=== PATIENT | female | born 1960 | race Caucasian/White ===

== ENCOUNTER 2021-07-19 11:05 | Emergency (ER) | payer OTHER, SELFPAY ==
--- NOTE | ~2021-07-19 | XR_ITS ---
EXAMINATION: XR ankle LT min 3V DATE: 07/19/2021 11:37 INDICATION: Left ankle injury and pain. TECHNIQUE: 4 views of left ankle were obtained. COMPARISON: None. FINDINGS: There is a transverse fracture of distal fibula with medial aspect of the fracture line at the level of the tibial plafond. The distal fracture fragment demonstrates 1 mm posterolateral displa cement. There is a nondisplaced avulsion fracture of the tip of medial malleolus. Joint spaces are no rmal. There is ankle soft tissue swelling. IMPRESSION: 1. Transverse fracture of lateral malleolus. 2. Avulsion fracture of distal tip of medial malleolus. Reviewed, dictated and finalized at location A.
--- NOTE | ~2021-07-19 | XR_ITS ---
EXAMINATION: XR foot LT min 3V DATE: 07/19/2021 11:38 INDICATION: Left foot injury and pain. TECHNIQUE: 4 views of left foot were obtained. COMPARISON: None. FINDINGS: There is moderate hallux valgus. There is a transverse fracture of lateral malleolus. There is a nondisplaced avulsion fracture of medial malleolus. There is mild osteoarthritis of first metat arsophalangeal joint. IMPRESSION: 1. Transverse fracture of lateral malleolus. 2. Nondisplaced avulsion fracture of medial malleolus. 3. Moderate hallux valgus. 4. Mild osteoarthritis of first metatarsophalangeal joint. Reviewed, dictated and finalized at location A.
[2021-07-19 11:05] VITALS: BP 131/78; PULSE 104; RESP 14; TEMP 36.7; O2SAT 98
[2021-07-19] MEDS: HYDROcodone/acetaminophen (*CRX) 5-325 MG TABLET 1 TAB PO (11:29)
[2021-07-19 12:57] VITALS: BP 124/68; PULSE 82; RESP 16; O2SAT 97
--- NOTE | 2021-07-19 13:53 | ED.LOWEXIN ---
HPI - Extremity Injury (Lower) General Chief Complaint: Extremity Injury, Lower Stated Complaint: L foot pain Time Seen by Provider: 07/19/21 11:08 History of Present Illness HPI Narrative: Patient is a 61-year-old female who presents ER with left ankle pain. Reports 2 days ago she tripped over a extension cord and twisted her ankle. She has not been able to bear weight. Pain is persisting. She has bruising at the base of her foot hurts worse over the lateral malleolus. She had some mild tingling. She did not strike her head or lose consciousness. No fevers or chills or. No additional concerns or complaints. Related Data Allergies Allergy/AdvReac Type Severity Reaction Status Date / Time diazepam Allergy Unknown Other Verified 07/19/21 11:10 imipramine Allergy Unknown Other Verified 07/19/21 11:10 risperidone Allergy Unknown Other Verified 07/19/21 11:10 WOOL AdvReac Unknown Other Uncoded 07/19/21 11:10 Review of Systems Gastrointestinal: Gastrointestinal: Denies nausea and Denies vomiting Musculoskeletal: Musculoskeletal: Reports arthralgias and Reports joint swelling Integumentary/Breasts: Skin/Breast: Denies rash Comments: Foot bruising Neurologic: Denies syncope, Denies focal weakness and Reports numbness Exam Narrative: GENERAL: Well-appearing, well-nourished, and in no acute distress. HEAD: Normocephalic, atraumatic. CHEST: Clear to auscultation. No respiratory distress. HEART: Regular rate and rhythm. Normal peripheral pulses. EXTREMITIES: Left ankle with tenderness over the lateral malleolus with bruising extending both proximally and distally. Swelling noted. Patient also has tenderness at the base of the fifth metatarsal and over the medial malleolus. Limited range of motion due to pain. No tenderness range of motion deficit at the ankle. Neurovascular intact in the foot. Sharp touch tested and felt. SKIN: Warm, dry, no rash. Bruising as noted above. NEURO: Alert and oriented x3. PSYCH: Normal mood and affect. Course Course Emergency Course: Patient placed in a stirrup OCL. Crutch training provided. Needs to follow-up with orthopedic surgery for further treatment evaluation. Vital Signs Vital signs: Vital Signs Temperature 98.0 F 07/19/21 11:05 Pulse Rate 104 H 07/19/21 11:05 Respiratory Rate 14 07/19/21 11:05 Blood Pressure 131/78 07/19/21 11:05 Pulse Oximetry 98 07/19/21 11:05 Temperature 98.0 F 07/19/21 11:05 Pulse Rate 80 07/19/21 13:55 Respiratory Rate 19 07/19/21 13:55 Blood Pressure 120/85 07/19/21 13:55 Pulse Oximetry 97 07/19/21 13:55 Procedures Orthopedic Splinting/Casting Injury #1: Splinting/Casting Date: 07/19/21 Splinting/Casting Time: 12:55 Side: left Lower Extremity Injury Location: ankle Lower Extremity Immobilizer: stirrup splint Splint: customized in ED OCL: stirrup Pre-Procedure Neuro Vascular Exam: normal Post-Procedure Neuro Vascular Exam: normal Other Orthopedic Equipment: crutches MDM - Extremity Injury (Lower) Imaging Data Radiologist's impression: ITS Impressions Ankle X-Ray 07/19/21 11:38 IMPRESSION: 1. Transverse fracture of lateral malleolus. 2. Avulsion fracture of distal tip of medial malleolus. Foot X-Ray 07/19/21 11:40 IMPRESSION: 1. Transverse fracture of lateral malleolus. 2. Nondisplaced avulsion fracture of medial malleolus. 3. Moderate hallux valgus. 4. Mild osteoarthritis of first metatarsophalangeal joint. Discharge Plan Discharge Clinical Impression: Fracture of lateral malleolus, Avulsion fracture of medial malleolus Patient Disposition: Home, Self-Care Condition: Stable Instructions: Ankle Fracture (ED), Crutch Instructions (ED) Additional Instructions: Do not bear weight on your ankle as it is fractured. Contact orthopedic surgeon listed to schedule follow-up appointment. Return to the ER if
[2021-07-19 13:55] VITALS: BP 120/85; PULSE 80; RESP 19; O2SAT 97
== END 2021-07-19 13:55 | disposition home or self-care (01) ==
PROVIDERS: Emergency Provider Emergency Medicine; PCP Physician Assistant
DX: S82.55XA Nondisplaced fracture of medial malleolus of left tibia, initial encounter for closed fracture (principal); S82.62XA Displaced fracture of lateral malleolus of left fibula, initial encounter for closed fracture; W01.0XXA Fall on same level from slipping, tripping and stumbling without subsequent striking against object, initial encounter
CPT/HCPCS: 29515; 73610; 73630; 99284; A9270

== ENCOUNTER 2023-05-27 17:16 | Emergency (ER) | payer OTHER, SELFPAY ==
[2023-05-27] VITALS (10 sets, daily range): BP systolic 135–181; BP diastolic 85–109; PULSE 67–108; RESP 14–24; TEMP 36.4–36.6; O2SAT 95–98
--- NOTE | ~2023-05-27 | XR_ITS ---
EXAMINATION: XR chest 1V portable DATE: 05/27/2023 18:15 INDICATION: Dyspnea. Dizziness. TECHNIQUE: A single frontal view of the chest was obtained. COMPARISON: None. FINDINGS: There is no pneumonia, pleural effusion, or pneumothorax. The heart size is normal. There a re old healed left rib fractures. IMPRESSION: 1. No acute cardiopulmonary disease. Reviewed, dictated and finalized at location E.
--- NOTE | 2023-05-27 17:38 | ECG_ITS ---
SEE SCANNED COPY FOR CONFIRMED REPORT MTDD
--- NOTE | 2023-05-27 17:40 | ED.DIZZY ---
HPI - Dizziness General Chief Complaint: Dizziness Stated Complaint: dizzy Time Seen by Provider: 05/27/23 17:26 History of Present Illness HPI Narrative: 63-year-old female with a history of anxiety and schizophrenia presents to the ED from [facility] with her caregiver at bedside for complaints of dizziness for approximately 1 week. Caregiver assist with history. States patient is complaining of dizziness mostly when she lays down for 1 week. Patient describes a dizziness like she is ?rolling down a hill?. She is also endorsing some shortness of breath. She denies coughing, however is coughing on exam. Denies fever, congestion, chest pain, lower extremity edema, history of VT, recent surgeries or hospitalizations, abdominal pain, nausea vomiting, diarrhea, vision changes, focal numbness or weakness, dysuria or hematuria. Patient states she smokes approximately 10 cigarettes per day, she has been smoking for 45 years. Denies formal diagnosis of COPD. Related Data Home Medications Medication Instructions Recorded Confirmed acetaminophen 500 mg tablet 1,000 mg PO Q6H PRN fever or pain 07/26/21 10/03/21 albuterol sulfate 90 mcg/actuation 2 puff inhalation TID PRN 07/26/21 10/03/21 aerosol inhaler shortness of breath or wheezing baclofen 10 mg tablet 10 mg PO TID PRN 07/26/21 10/03/21 budesonide-formoterol HFA 160 2 puff inhalation Q12H 07/26/21 10/03/21 mcg-4.5 mcg/actuation aerosol inhaler (Symbicort) dextroamphetamine sulfate 10 mg 10 mg PO DAILY 07/26/21 10/03/21 tablet docusate sodium 100 mg capsule 100 mg PO BID 07/26/21 10/03/21 ferrous sulfate 325 mg (65 mg 325 mg PO TID 07/26/21 10/03/21 iron) tablet,delayed release fluticasone propionate 50 1 spray intranasal BID 07/26/21 10/03/21 mcg/actuation nasal spray,suspension (Allergy Relief (fluticasone)) ibuprofen 800 mg tablet 800 mg PO TID PRN pain 07/26/21 10/03/21 loratadine 10 mg tablet 10 mg PO DAILY 07/26/21 10/03/21 multivitamin 1 tablet PO DAILY 07/26/21 10/03/21 nicotine (polacrilex) 4 mg buccal 4 mg buccal Q3H PRN 07/26/21 10/03/21 lozenge (Nicorette) omeprazole 40 mg capsule,delayed 40 mg PO DAILY 07/26/21 10/03/21 release paliperidone palmitate 234 mg/1.5 234 mg IM MONTHLY 07/26/21 10/03/21 mL intramuscular syringe (Invega Sustenna) prazosin 1 mg capsule 1 mg PO TID 07/26/21 10/03/21 simvastatin 40 mg tablet 40 mg PO DAILY 07/26/21 10/03/21 sumatriptan succinate 100 mg tablet 100 mg PO ONCE PRN migraine 07/26/21 10/03/21 headache trihexyphenidyl 2 mg tablet 2 mg PO QHS 07/26/21 10/03/21 venlafaxine 150 mg 150 mg PO DAILY 07/26/21 10/03/21 capsule,extended release 24 hr venlafaxine 75 mg tablet 75 mg PO QAM 07/26/21 10/03/21 ziprasidone HCl 80 mg capsule 80 mg PO BID 07/26/21 10/03/21 Allergies Allergy/AdvReac Type Severity Reaction Status Date / Time diazepam Allergy Unknown Throat Verified 05/27/23 17:25 Swelling imipramine Allergy Unknown Seizure Verified 05/27/23 17:25 risperidone Allergy Unknown Throat Verified 05/27/23 17:25 Swelling WOOL AdvReac Unknown Other Uncoded 05/27/23 17:25 Review of Systems Review of Systems: CONSTITUTIONAL: Denies fever, chills, or sweats. EYES: Denies visual changes, redness, or discharge. ENT: Denies rhinorrhea, congestion, sore throat, or otalgia. CARDIOVASCULAR: Denies chest pain, palpitations, or edema. RESPIRATORY: See HPI GASTROINTESTINAL: Denies abdominal pain, nausea, vomiting, or diarrhea. GENITOURINARY: Denies dysuria or hematuria. SKIN: Denies rash or itching. MUSCULOSKELETAL: Denies back pain, joint pain, or myalgia. NEUROLOGIC: Denies headache, numbness, or weakness. PSYCHIATRIC: See HPI [facility] Past Medical History Medical History Anxiety Asthma Depression Osteoarthritis UTI (urinary tract infection), bacterial Wears glasses Weight gain Surgical History Surgical History (Re
[2023-05-27 17:57] LABS: Basophils Absolute Auto 0.1 K/mm3 (0.0-0.1); Basophils Percent Auto 0.8 % (0.2-1.2); Eosinophils Absolute Auto 0.1 K/mm3 (0-0.3); Eosinophils Percent Auto 1.2 % (0-4.4); Hematocrit 40.6 % (37.0-47.0); Hemoglobin 13.9 g/dL (12.0-15.0); Immature Granulocyte Absolute 0.03 K/mm3 (0.00-0.031); Immature Granulocyte Percent A 0.3 % (0-0.5); Lymphocytes Absolute Auto 3.52 K/mm3 (0.9-3.2); Lymphocytes Percent Auto 37.3 % (18.3-44.2); Mean Corpuscular HGB Conc 34.2 g/dl (32-36); Mean Corpuscular Hemoglobin 32.7 pg (26-34); Mean Corpuscular Volume 95.5 fl (80-100); Mean Platelet Volume 9.9 fl (7.4-10.4); Monocytes Percent Auto 10.7 % (2.6-8.5); Neutrophils Absolute Auto 4.7 K/mm3 (1.3-6.7); Neutrophils Percent Auto 49.7 % (45.5-73.1); Platelet Count Result 231 k/mm3 (150-375); Red Blood Count 4.25 M/mm3 (4.2-5.4); Red Cell Distribution Width 14.1 % (11.5-14.5); White Blood Count 9.4 K/mm3 (4.5-10.0)
[2023-05-27] MEDS: IPRATROPIUM 0.5 MG/ALBUTEROL SULFATE 2.5 MG AMPUL.NEB 3 ML INHALATION (18:03)
[2023-05-27 18:09] LABS: Alanine Aminotransferase 14 U/L (6-35); Albumin Level 4.1 g/dL (3.5-5.1); Alkaline Phosphatase 59 U/L (38-126); Anion Gap 7 mmol/L (4-12); Aspartate Amino Transferase 21 U/L (14-36); Bilirubin,Total 0.6 mg/dL (0.2-1.3); Blood Urea Nitrogen 5 mg/dL (7-17); Calcium 10.3 mg/dL (8.4-10.2); Carbon Dioxide 27 mmol/L (22-30); Chloride 106 mmol/L (98-107); Estimated CRCL calculation 60 ml/min; Estimated Glomerular Filt Rate > 60; Glucose 91 mg/dL (65-110); Potassium 3.4 mmol/L (3.4-5.0); Sodium 140 mmol/L (137-145)
[2023-05-27 18:16] LABS: Partial Thromboplastin Time 27.6 Seconds (22.3-36.8)
[2023-05-27 18:17] LABS: INR 0.9; Prothrombin Time 12.7 Seconds (11.1-14.7)
[2023-05-27 18:20] LABS: NT Pro B Type Natriuretic Pept 153 pg/mL (19.9-100); Troponin I < 0.012 ng/mL (0.000-0.034)
[2023-05-27] MEDS: methylPREDNISolone SOD SUCC 125 MG VIAL IV PUSH (18:23)
[2023-05-27] MEDS: SODIUM CHLORIDE 0.9% IV 1,000 ML 999 ML IV CONT ×2 (18:23→19:19)
[2023-05-27] MEDS: MECLIZINE HCL 25 MG TABLET PO (18:23)
[2023-05-27 18:26] LABS: D Dimer 0.69 ug/mL (<0.48)
[2023-05-27 18:33] LABS: Influenza A QL RT-PCR Negative (Negative); Influenza B QL RT-PCR Negative (Negative); RSV RNA, RT-PCR Negative (Negative); SARS-CoV-2 RNA PCR Negative (Negative)
[2023-05-27 19:21] LABS: Appearance Urine Clear (Clear); Bacteria Urine None Seen /hpf; Bilirubin Urine Negative (Negative); Blood Urine Negative (Negative); Color Urine Yellow (Yellow); Glucose Urine UA Negative (Negative); Ketones Urine Trace mg/dL (Negative); Leukocyte Esterase Ur 1+ LEU/UL (Negative); Need Manual Microscopic Reviewed; Nitrate Urine Negative (Negative); Non Pathogenic Casts 0-2; Protein Urine Negative (Negative); RBC Urine 0-2 /hpf (0-2); Specific Grav Ur 1.007 (1.001-1.035); Squamous Epithelial Cell Urine Occasional /hpf (Few); Urobilinogen Urine 0.2 mg/dL (<2.0); WBC Urine 0-5 /hpf (0-3); pH Urine 6.5 (5.0-9.0)
[2023-05-27 19:23] LABS: Add Urine Microscopic? YES
--- NOTE | 2023-05-27 19:48 | PC.NURSE ---
Pt states that she feels better and is ready to eat. Aylin notified and requested a road test. Pt ambulatory to the restroom with steady gait. Aylin updated.
[2023-05-27] MEDS: AMOXICILLIN/CLAVULANATE K 875-125 MG TAB 1 TABLET PO (20:50)
== END 2023-05-27 21:00 | disposition home or self-care (01) ==
PROVIDERS: Emergency Provider Physician Assistant; PCP Emergency Medicine
DX: J40 Bronchitis, not specified as acute or chronic (principal); I95.1 Orthostatic hypotension; Z20.822 Contact with and (suspected) exposure to COVID-19; F17.210 Nicotine dependence, cigarettes, uncomplicated; F41.9 Anxiety disorder, unspecified; F32.A Depression, unspecified; M19.90 Unspecified osteoarthritis, unspecified site; Z87.440 Personal history of urinary (tract) infections
CPT/HCPCS: 36415; 71045; 80053; 81001; 83735; 83880; 84484; 85025; 85380; 85610; 85730; 87637; 93005; 94640; 96361; 96374; 99284; A9270; J2919; J7030

== ENCOUNTER 2023-06-05 20:22 | Emergency (ER) | payer OTHER, SELFPAY ==
[2023-06-05 20:26] VITALS: BP 140/76; PULSE 79; RESP 20; TEMP 36.8; O2SAT 97
--- NOTE | 2023-06-05 21:24 | PC.NURSE ---
Pt's caregiver approached the motel front desk clerk stating they were leaving so pt could go home and go to bed.
== END 2023-06-05 21:34 | disposition left against medical advice (07) ==
LOC: ANHED 21:27
PROVIDERS: PCP Emergency Medicine
DX: G47.00 Insomnia, unspecified (principal)
CPT/HCPCS: 99199

== ENCOUNTER 2023-07-14 15:53 | Emergency (ER) | payer OTHER, SELFPAY ==
--- NOTE | ~2023-07-14 | XR_ITS ---
EXAMINATION: XR chest 2V DATE: 07/14/2023 16:18 INDICATION: Shortness of breath. TECHNIQUE: Frontal and lateral views of the chest were obtained. COMPARISON: Chest single view 05/27/2023 FINDINGS: There is no pneumonia, pleural effusion, or pneumothorax. The heart size is normal. There a re old healed left rib fractures. IMPRESSION: 1. No acute cardiopulmonary disease. Reviewed, dictated and finalized at location A.
[2023-07-14 15:52] VITALS: BP 136/86; PULSE 108; RESP 20; O2SAT 95
[2023-07-14 16:02] VITALS: O2SAT 96
[2023-07-14 16:12] LABS: Basophils Absolute Auto 0.1 K/mm3 (0.0-0.1); Basophils Percent Auto 0.7 % (0.2-1.2); Eosinophils Absolute Auto 0.1 K/mm3 (0-0.3); Eosinophils Percent Auto 1.3 % (0-4.4); Hematocrit 39.2 % (37.0-47.0); Hemoglobin 13.5 g/dL (12.0-15.0); Immature Granulocyte Absolute 0.04 K/mm3 (0.00-0.031); Immature Granulocyte Percent A 0.4 % (0-0.5); Lymphocytes Absolute Auto 2.42 K/mm3 (0.9-3.2); Lymphocytes Percent Auto 22.5 % (18.3-44.2); Mean Corpuscular HGB Conc 34.4 g/dl (32-36); Mean Corpuscular Hemoglobin 32.8 pg (26-34); Mean Corpuscular Volume 95.4 fl (80-100); Mean Platelet Volume 9.6 fl (7.4-10.4); Monocytes Absolute Auto 1.1 K/mm3 (0.1-0.6); Neutrophils Percent Auto 65.1 % (45.5-73.1); Platelet Count Result 315 k/mm3 (150-375); Red Blood Count 4.11 M/mm3 (4.2-5.4); Red Cell Distribution Width 14.6 % (11.5-14.5); White Blood Count 10.8 K/mm3 (4.5-10.0)
[2023-07-14 16:23] LABS: Alanine Aminotransferase 13 U/L (6-35); Albumin Level 4.1 g/dL (3.5-5.1); Alkaline Phosphatase 70 U/L (38-126); Anion Gap 8 mmol/L (4-12); Aspartate Amino Transferase 23 U/L (14-36); Bilirubin,Total 0.6 mg/dL (0.2-1.3); Blood Urea Nitrogen 5 mg/dL (7-17); Calcium 9.9 mg/dL (8.4-10.2); Carbon Dioxide 27 mmol/L (22-30); Chloride 102 mmol/L (98-107); Estimated CRCL calculation 69 ml/min; Estimated Glomerular Filt Rate > 60; Glucose 98 mg/dL (65-110); Sodium 137 mmol/L (137-145)
--- NOTE | 2023-07-14 18:38 | ED.SOB ---
HPI - SOB/Dyspnea General Chief Complaint: Shortness of Breath/Dyspnea Stated Complaint: dyspnea Time Seen by Provider: 07/14/23 17:55 History of Present Illness HPI Narrative: patient is a 63-year-old female who presents ER with shortness of breath. She has history of asthma. She does not have a mask for her nebulizer machine at home. She received a neb by EMS as well as receiving steroids. She reports this has made her feel much better. No fevers or chills or sweats. No chest pain or chest pressure. Related Data Home Medications Medication Instructions Recorded Confirmed acetaminophen 500 mg tablet 1,000 mg PO Q6H PRN fever or pain 07/26/21 10/03/21 albuterol sulfate 90 mcg/actuation 2 puff inhalation TID PRN 07/26/21 10/03/21 aerosol inhaler shortness of breath or wheezing baclofen 10 mg tablet 10 mg PO TID PRN 07/26/21 10/03/21 budesonide-formoterol HFA 160 2 puff inhalation Q12H 07/26/21 10/03/21 mcg-4.5 mcg/actuation aerosol inhaler (Symbicort) dextroamphetamine sulfate 10 mg 10 mg PO DAILY 07/26/21 10/03/21 tablet docusate sodium 100 mg capsule 100 mg PO BID 07/26/21 10/03/21 ferrous sulfate 325 mg (65 mg 325 mg PO TID 07/26/21 10/03/21 iron) tablet,delayed release fluticasone propionate 50 1 spray intranasal BID 07/26/21 10/03/21 mcg/actuation nasal spray,suspension (Allergy Relief (fluticasone)) ibuprofen 800 mg tablet 800 mg PO TID PRN pain 07/26/21 10/03/21 loratadine 10 mg tablet 10 mg PO DAILY 07/26/21 10/03/21 multivitamin 1 tablet PO DAILY 07/26/21 10/03/21 nicotine (polacrilex) 4 mg buccal 4 mg buccal Q3H PRN 07/26/21 10/03/21 lozenge (Nicorette) omeprazole 40 mg capsule,delayed 40 mg PO DAILY 07/26/21 10/03/21 release paliperidone palmitate 234 mg/1.5 234 mg IM MONTHLY 06/16/22 08/24/22 mL intramuscular syringe (Invega Sustenna) prazosin 1 mg capsule 1 mg PO TID 07/26/21 10/03/21 simvastatin 40 mg tablet 40 mg PO DAILY 07/26/21 10/03/21 sumatriptan succinate 100 mg tablet 100 mg PO ONCE PRN migraine 07/26/21 10/03/21 headache trihexyphenidyl 2 mg tablet 2 mg PO QHS 07/26/21 10/03/21 venlafaxine 150 mg 150 mg PO DAILY 07/26/21 10/03/21 capsule,extended release 24 hr venlafaxine 75 mg tablet 75 mg PO QAM 07/26/21 10/03/21 ziprasidone HCl 80 mg capsule 80 mg PO BID 07/26/21 10/03/21 Allergies Allergy/AdvReac Type Severity Reaction Status Date / Time diazepam Allergy Unknown Throat Verified 06/05/23 20:23 Swelling imipramine Allergy Unknown Seizure Verified 06/05/23 20:23 risperidone Allergy Unknown Throat Verified 06/05/23 20:23 Swelling WOOL AdvReac Unknown Other Uncoded 06/05/23 20:23 Review of Systems Review of Systems: All systems reviewed & are unremarkable except as noted in HPI and below Constitutional: Constitutional: Reports no additional constitutional complaints ENT: Reports system reviewed and no additional complaints, except as documented Cardiovascular: Cardiovascular: Reports no additional cardiovascular complaints Respiratory: Respiratory: Reports cough, Reports dyspnea and Reports wheezing Gastrointestinal: Gastrointestinal: Reports no additional gastrointestinal complaints Genitourinary: Genitourinary: Reports no additional female genitourinary complaints PMFSH Past Medical History Medical History Anxiety Asthma Depression Osteoarthritis UTI (urinary tract infection), bacterial Wears glasses Weight gain Surgical History Surgical History History of ankle surgery right ankle Dr. Lopez Family History Family History Other Arthritis Asthma Depression Social History Social History Smoking packs per day: 1 Smoking cigarettes per day: 20.0 Years smoked: 40 Smoking pack-years: 40.0
[2023-07-14 18:52] VITALS: PULSE 103; RESP 24
[2023-07-14] MEDS: IPRATROPIUM 0.5 MG/ALBUTEROL SULFATE 2.5 MG AMPUL.NEB 3 ML INHALATION (18:52)
[2023-07-14 19:28] VITALS: BP 144/93; PULSE 68; RESP 16; O2SAT 98
== END 2023-07-14 19:37 | disposition home or self-care (01) ==
PROVIDERS: Emergency Provider Emergency Medicine; PCP Emergency Medicine
DX: J45.909 Unspecified asthma, uncomplicated (principal); M19.90 Unspecified osteoarthritis, unspecified site; F41.9 Anxiety disorder, unspecified; F32.A Depression, unspecified; F17.210 Nicotine dependence, cigarettes, uncomplicated; Z87.440 Personal history of urinary (tract) infections; Z79.899 Other long term (current) drug therapy; R00.0 Tachycardia, unspecified; I51.7 Cardiomegaly
CPT/HCPCS: 36415; 71046; 80053; 85025; 93005; 94640; 99284

== ENCOUNTER 2023-08-15 18:36 | Emergency (ER) | payer OTHER, SELFPAY ==
--- NOTE | ~2023-08-15 | XR_ITS ---
XR chest 1V portable Ordering provider: Malu Yan PA-C History: 63 years Female with . dysphagia . Comparison: July 14, 2023 FINDINGS: MEDIASTINUM: The cardiac silhouette is not enlarged. LUNGS: No infiltrates, effusions or pneumothorax. Atelectatic changes in the right lung base. OTHER: No free air under the diaphragm. IMPRESSION: No acute cardiopulmonary pathology. Reviewed, dictated and finalized at location A.
[2023-08-15 18:39] VITALS: BP 144/90; PULSE 74; RESP 16; TEMP 36.7; O2SAT 96
[2023-08-15] MEDS: SODIUM CHLORIDE 0.9% IV 1,000 ML 999 ML IV CONT (19:28)
[2023-08-15 19:39] LABS: Basophils Absolute Auto 0.1 K/mm3 (0.0-0.1); Basophils Percent Auto 0.8 % (0.2-1.2); Eosinophils Absolute Auto 0.1 K/mm3 (0-0.3); Eosinophils Percent Auto 1.3 % (0-4.4); Hematocrit 39.7 % (37.0-47.0); Hemoglobin 13.7 g/dL (12.0-15.0); Immature Granulocyte Absolute 0.03 K/mm3 (0.00-0.031); Immature Granulocyte Percent A 0.3 % (0-0.5); Lymphocytes Absolute Auto 2.47 K/mm3 (0.9-3.2); Lymphocytes Percent Auto 24.3 % (18.3-44.2); Mean Corpuscular HGB Conc 34.5 g/dl (32-36); Mean Corpuscular Hemoglobin 33.3 pg (26-34); Mean Corpuscular Volume 96.4 fl (80-100); Mean Platelet Volume 9.6 fl (7.4-10.4); Monocytes Absolute Auto 1.2 K/mm3 (0.1-0.6); Monocytes Percent Auto 11.3 % (2.6-8.5); Neutrophils Absolute Auto 6.3 K/mm3 (1.3-6.7); Platelet Count Result 318 k/mm3 (150-375); Red Blood Count 4.12 M/mm3 (4.2-5.4); Red Cell Distribution Width 14.7 % (11.5-14.5); White Blood Count 10.2 K/mm3 (4.5-10.0)
[2023-08-15 19:50] LABS: Alanine Aminotransferase 13 U/L (6-35); Albumin Level 4.1 g/dL (3.5-5.1); Alkaline Phosphatase 68 U/L (38-126); Anion Gap 6 mmol/L (4-12); Aspartate Amino Transferase 20 U/L (14-36); Bilirubin,Total 0.6 mg/dL (0.2-1.3); Blood Urea Nitrogen 6 mg/dL (7-17); Calcium 10.6 mg/dL (8.4-10.2); Carbon Dioxide 31 mmol/L (22-30); Chloride 102 mmol/L (98-107); Estimated Glomerular Filt Rate > 60; Glucose 105 mg/dL (65-110); Potassium 2.9 mmol/L (3.4-5.0); Sodium 139 mmol/L (137-145)
[2023-08-15 19:51] LABS: Lactic Acid Reflex 0.9 mmol/L (0.7-2.0)
--- NOTE | 2023-08-15 20:18 | ED.GENADULT ---
HPI - General Adult General Chief complaint: Unspecified Stated complaint: difficulty swallowing Time Seen by Provider: 08/15/23 20:07 History of Present Illness HPI narrative: 63-year-old female with history of anxiety, asthma, depression presents to the emergency department with her bite block maker at bedside for difficulty swallowing for 1 month. Patient states she has been having difficulty swallowing food and fluids. states it is not painful to swallow but rather difficult to swallow. The bite block maker from the patient's assisted living facility at bedside states that the patient is complaining of difficulty swallowing for a few weeks. States the patient has been unable to take her medications unless they cut her pills into small sizes, the patient is able to swallow her meds however it does appeared to be difficult. The patient denies any chest pain or foreign body sensation, abdominal pain, nausea or vomiting, diarrhea, sore throat, fever. She Also states she is urinating more frequently. Denies dysuria or hematuria. Related Data Home Medications Medication Instructions Recorded Confirmed acetaminophen 500 mg tablet 1,000 mg PO Q6H PRN fever or pain 07/26/21 10/03/21 albuterol sulfate 90 mcg/actuation 2 puff inhalation TID PRN 07/26/21 10/03/21 aerosol inhaler shortness of breath or wheezing baclofen 10 mg tablet 10 mg PO TID PRN 07/26/21 10/03/21 budesonide-formoterol HFA 160 2 puff inhalation Q12H 07/26/21 10/03/21 mcg-4.5 mcg/actuation aerosol inhaler (Symbicort) dextroamphetamine sulfate 10 mg 10 mg PO DAILY 07/26/21 10/03/21 tablet docusate sodium 100 mg capsule 100 mg PO BID 07/26/21 10/03/21 ferrous sulfate 325 mg (65 mg 325 mg PO TID 07/26/21 10/03/21 iron) tablet,delayed release fluticasone propionate 50 1 spray intranasal BID 07/26/21 10/03/21 mcg/actuation nasal spray,suspension (Allergy Relief (fluticasone)) ibuprofen 800 mg tablet 800 mg PO TID PRN pain 07/26/21 10/03/21 loratadine 10 mg tablet 10 mg PO DAILY 07/26/21 10/03/21 multivitamin 1 tablet PO DAILY 07/26/21 10/03/21 nicotine (polacrilex) 4 mg buccal 4 mg buccal Q3H PRN 07/26/21 10/03/21 lozenge (Nicorette) omeprazole 40 mg capsule,delayed 40 mg PO DAILY 07/26/21 10/03/21 release paliperidone palmitate 234 mg/1.5 234 mg IM MONTHLY 07/26/21 10/03/21 mL intramuscular syringe (Invega Sustenna) prazosin 1 mg capsule 1 mg PO TID 07/26/21 10/03/21 simvastatin 40 mg tablet 40 mg PO DAILY 07/26/21 10/03/21 sumatriptan succinate 100 mg tablet 100 mg PO ONCE PRN migraine 07/26/21 10/03/21 headache trihexyphenidyl 2 mg tablet 2 mg PO QHS 07/26/21 10/03/21 venlafaxine 150 mg 150 mg PO DAILY 07/26/21 10/03/21 capsule,extended release 24 hr venlafaxine 75 mg tablet 75 mg PO QAM 07/26/21 10/03/21 ziprasidone HCl 80 mg capsule 80 mg PO BID 07/26/21 10/03/21 Allergies Allergy/AdvReac Type Severity Reaction Status Date / Time diazepam Allergy Unknown Throat Verified 08/15/23 19:47 Swelling imipramine Allergy Unknown Seizure Verified 08/15/23 19:47 risperidone Allergy Unknown Throat Verified 08/15/23 19:47 Swelling WOOL AdvReac Unknown Other Uncoded 08/15/23 19:47 Review of Systems Review of Systems: CONSTITUTIONAL: Denies fever, chills, or sweats. EYES: Denies visual changes, redness, or discharge. ENT: Denies rhinorrhea, congestion, sore throat, or otalgia. CARDIOVASCULAR: Denies chest pain, palpitations, or edema. RESPIRATORY: Denies cough or dyspnea. GASTROINTESTINAL: Denies abdominal pain, nausea, vomiting, or diarrhea. GENITOURINARY: See HPI SKIN: Denies rash or itching. MUSCULOSKELETAL: Denies back pain, joint pain, or myalgia. NEUROLOGIC: see HPI PSYCHIATRIC: Denies anxiety or depression. [facility] Past Medical History Medical History Anxiety Asthma Depression Osteoarthritis UTI (urinary tract infection), bacterial Wears glasses Weight gain
[2023-08-15 20:32] LABS: Magnesium 1.9 mg/dL (1.6-2.3)
[2023-08-15] MEDS: POTASSIUM CHLORIDE 20 MEQ PACKET (FOR LIQUID) 40 MEQ PO (21:02)
[2023-08-15] MEDS: KCL 20 MEQ/SW 100 ML 100 ML 50 MEQ IVPB (21:02)
[2023-08-15 21:23] VITALS: BP 164/114; PULSE 101; RESP 18; O2SAT 97
[2023-08-15 22:01] VITALS: BP 148/122; PULSE 84; RESP 18; O2SAT 98
--- NOTE | 2023-08-15 22:09 | ECG_ITS ---
Test Date: 2023-08-15 22:21:51 Measurements Intervals [place] Rate: 80 P: 64 ME: 139 QRS: 57 QRSD: 79 T: 64 QT: 377 QTc: 435 Interpretive Statements SINUS RHYTHM POSSIBLE LEFT ATRIAL ENLARGEMENT BASELINE ARTIFACT- I, II, III, AVR, AVL, AVF, V1-V6 BORDERLINE ECG No previous ECG available for comparison Electronically Signed On 08-16-2023 07:52:50 CDT by Rosales Mckeon D.O.
[2023-08-15 22:51] LABS: Appearance Urine Clear (Clear); Bacteria Urine None Seen /hpf; Bilirubin Urine Negative (Negative); Blood Urine Negative (Negative); Color Urine Yellow (Yellow); Glucose Urine UA Negative (Negative); Ketones Urine Negative (Negative); Leukocyte Esterase Ur Trace LEU/UL (Negative); Nitrate Urine Negative (Negative); Non Pathogenic Casts 0-2; Protein Urine Negative (Negative); Specific Grav Ur 1.005 (1.001-1.035); Squamous Epithelial Cell Urine None Seen /hpf (Few); Urobilinogen Urine 0.2 mg/dL (<2.0); WBC Urine 0-5 /hpf (0-3)
[2023-08-15 22:56] LABS: Add Urine Microscopic? YES
[2023-08-15 23:35] VITALS: BP 157/99; PULSE 70; RESP 17; O2SAT 96
== END 2023-08-15 23:48 | disposition home or self-care (01) ==
PROVIDERS: Emergency Medicine; Emergency Provider Physician Assistant; PCP Internal Medicine
DX: R13.10 Dysphagia, unspecified (principal); E87.6 Hypokalemia; J45.909 Unspecified asthma, uncomplicated; M19.90 Unspecified osteoarthritis, unspecified site; F41.9 Anxiety disorder, unspecified; F32.A Depression, unspecified; F17.210 Nicotine dependence, cigarettes, uncomplicated; Z87.440 Personal history of urinary (tract) infections; Z79.899 Other long term (current) drug therapy
CPT/HCPCS: 36415; 71045; 80053; 81001; 83605; 83735; 85025; 93005; 96361; 96365; 96366; 99284; A9270; J3480; J7030

== ENCOUNTER 2023-08-23 12:13 | Observation (INO) | payer OTHER, SELFPAY ==
[2023-08-23] VITALS (21 sets, daily range): BP systolic 145–168; BP diastolic 75–105; PULSE 75–106; RESP 16–25; TEMP 36.8–37.6; O2SAT 95–98; BMI 18.3
--- NOTE | ~2023-08-23 | XR_ITS ---
MODIFIED ESOPHAGRAM HISTORY: Dysphagia. TECHNIQUE: Modified barium esophagram was performed on 08/25/2023. I administered fluoroscopy and perf ormed the exam with speech pathologist. Patient was seated for lateral fluoroscopic imaging for jeanne stion of thin liquids, pudding, solids and quantified amounts, followed by thin liquids in uncontroll ed amounts. This was recorded on tape. A single fluoroscopic spot image was also recorded. The DAP fo r this procedure was 1.273 Gycm2. The amount of fluoroscopy time used during this procedure was 2.0 m inutes. FINDINGS: Oral stage: Adequate function. Pharyngeal stage: Reduced laryngeal elevation, tongue base retraction and pharyngeal squeeze. There i s mild vallecular and minimal piriform sinus residue. There was laryngeal penetration and aspiration with uncontrolled thin liquids. This elicited a delayed and weak cough. Cervical/esophageal stage: Adequate function. IMPRESSION: Pharyngeal dysphagia with laryngeal penetration and aspiration eliciting only a delayed a nd weak cough. Please correlate with speech pathologist findings and specific feeding recommendation s. Reviewed, dictated and finalized at location A. IMPRESSION: Pharyngeal dysphagia with laryngeal penetration and aspiration elic iting only a delayed and weak cough. Please correlate with speech pathologist findings and specific feeding recommendations.
--- NOTE | ~2023-08-23 | XR_ITS ---
EXAMINATION: XR chest 1V DATE: 08/23/2023 13:13 INDICATION: Shortness of breath. Dysphagia. TECHNIQUE: frontal view of the chest was obtained. COMPARISON: Chest radiograph dated 08/15/2023 FINDINGS: The lungs remain clear with no focal airspace opacities, pulmonary edema, pleural effusion or pneumot horax. The cardiomediastinal silhouette is normal. Small amount of residual oral contrast material in the proximal esophagus and in the stomach. IMPRESSION: 1. No acute cardiopulmonary disease. Reviewed, dictated and finalized at location A.
--- NOTE | ~2023-08-23 | CT_ITS ---
Non-contrast Head CT History: Dysphagia Technique: Axial non-contrast imaging of the brain was performed. Dose reduction technique was used on this scan by utilizing automated exposure control and iterative reconstruction technique. The dose -length product (DLP) was 605.33 mGy-cm. Findings: There is no evidence of intracranial hemorrhage, mass lesion, or acute infarct. Brain par enchyma appears normal. The ventricles and subarachnoid spaces are normal in size. The calvarium ap pears normal. The visualized paranasal sinuses and mastoid air cells are clear. Impression: No significant abnormality seen. Reviewed, dictated and finalized at location . Impression: No significant abnormality seen.
--- NOTE | ~2023-08-23 | XR_ITS ---
EXAMINATION: XR barium swallow DATE: 08/23/2023 13:16 INDICATION: Dysphagia. TECHNIQUE: The patient drank thin barium. Fluoroscopic spot radiographs of the hypopharynx and esopha carter were obtained. Procedure was modified due to patient's and limited mobility and inability to tucker d throughout the procedure. Fluoroscopy exposure time was 1.5 minutes. A total of 1217 fluoroscopic i mages were obtained. COMPARISON: None. FINDINGS: The esophagus is normal without mass or stricture. Mild esophageal dysmotility with weakening of the primary peristaltic wave and development of multiple tertiary contractions in the mid to distal esoph milvia. There is no hiatal hernia. IMPRESSION: 1. Mild esophageal dysmotility with poor progression of the primary peristaltic wave and multiple ter tiary contractions in the mid to distal esophagus. Otherwise normal esophagus with no evident mass or stricture. 2. The majority of the swallows were suboptimal with patient swelling only limited quantities of cont rast but which appear to proceed normally through the esophagus. Per the patient's description this a ppeared to represent a real versus perceived difficulty with the oropharyngeal phase of the swallow. Would recommend further evaluation by the department of speech pathology with modified barium swallow study if indicated. Reviewed, dictated and finalized at location A. IMPRESSION: 1. Mild esophageal dysmotility with poor progression of the primary peristaltic wave and multiple tertiary contractions in the mid to distal esophagus. Otherw ise normal esophagus with no evident mass or stricture. 2. The majority of the swallows were suboptimal with patient swelling only limi lynne quantities of contrast but which appear to proceed normally through the eso phagus. Per the patient's description this appeared to represent a real versus perceived difficulty with the oropharyngeal phase of the swallow. Would recomme nd further evaluation by the department of speech pathology with modified bariu m swallow study if indicated.
--- NOTE | 2023-08-23 12:33 | ECG_ITS ---
Test Date: 2023-08-23 12:45:54 Measurements Intervals [place] Rate: 86 P: 64 MA: 143 QRS: 46 QRSD: 80 T: 61 QT: 253 QTc: 303 Interpretive Statements SINUS RHYTHM NONSPECIFIC T-WAVE ABNORMALITY Compared to ECG 08/15/2023 22:21:51 T-wave abnormality now present Electronically Signed On 08-23-2023 13:04:57 CDT by Wan Krause M.D.
[2023-08-23 12:51] LABS: Basophils Absolute Auto 0.1 K/mm3 (0.0-0.1); Basophils Percent Auto 0.9 % (0.2-1.2); Eosinophils Percent Auto 0.4 % (0-4.4); Hematocrit 38.2 % (37.0-47.0); Hemoglobin 12.8 g/dL (12.0-15.0); Immature Granulocyte Absolute 0.02 K/mm3 (0.00-0.031); Immature Granulocyte Percent A 0.2 % (0-0.5); Lymphocytes Absolute Auto 1.84 K/mm3 (0.9-3.2); Lymphocytes Percent Auto 19.8 % (18.3-44.2); Mean Corpuscular HGB Conc 33.5 g/dl (32-36); Mean Corpuscular Hemoglobin 32.7 pg (26-34); Mean Corpuscular Volume 97.4 fl (80-100); Mean Platelet Volume 9.6 fl (7.4-10.4); Monocytes Absolute Auto 0.7 K/mm3 (0.1-0.6); Monocytes Percent Auto 7.6 % (2.6-8.5); Neutrophils Absolute Auto 6.6 K/mm3 (1.3-6.7); Neutrophils Percent Auto 71.1 % (45.5-73.1); Platelet Count Result 256 k/mm3 (150-375); Red Blood Count 3.92 M/mm3 (4.2-5.4); Red Cell Distribution Width 14.9 % (11.5-14.5); White Blood Count 9.3 K/mm3 (4.5-10.0)
[2023-08-23 13:03] LABS: Lactic Acid Reflex 0.7 mmol/L (0.7-2.0)
[2023-08-23 13:04] LABS: Alanine Aminotransferase 14 U/L (6-35); Albumin Level 3.6 g/dL (3.5-5.1); Alkaline Phosphatase 60 U/L (38-126); Anion Gap 7 mmol/L (4-12); Aspartate Amino Transferase 24 U/L (14-36); Bilirubin,Total 0.5 mg/dL (0.2-1.3); Blood Urea Nitrogen 5 mg/dL (7-17); Calcium 9.9 mg/dL (8.4-10.2); Carbon Dioxide 29 mmol/L (22-30); Chloride 104 mmol/L (98-107); Estimated CRCL calculation 67 ml/min; Estimated Glomerular Filt Rate > 60; Glucose 109 mg/dL (65-110); Potassium 3.2 mmol/L (3.4-5.0); Sodium 140 mmol/L (137-145)
[2023-08-23 13:08] LABS: INR 0.9; Partial Thromboplastin Time 24.7 Seconds (22.3-36.8); Prothrombin Time 12.2 Seconds (11.1-14.7)
[2023-08-23 13:15] LABS: NT Pro B Type Natriuretic Pept 284 pg/mL (19.9-100); Troponin I < 0.012 ng/mL (0.000-0.034)
[2023-08-23 13:21] LABS: Procalcitonin < 0.0 ng/mL
[2023-08-23 13:28] LABS: Influenza A QL RT-PCR Negative (Negative); Influenza B QL RT-PCR Negative (Negative); RSV RNA, RT-PCR Negative (Negative); SARS-CoV-2 RNA PCR Negative (Negative)
[2023-08-23 14:29] LABS: Appearance Urine Turbid (Clear); Bacteria Urine None Seen /hpf; Bilirubin Urine Negative (Negative); Blood Urine Negative (Negative); Color Urine Yellow (Yellow); Glucose Urine UA Negative (Negative); Ketones Urine Negative (Negative); Leukocyte Esterase Ur Negative LEU/UL (Negative); Nitrate Urine Negative (Negative); Non Pathogenic Casts 0-2; Protein Urine Negative (Negative); RBC Urine 0-2 /hpf (0-2); Specific Grav Ur 1.012 (1.001-1.035); Squamous Epithelial Cell Urine None Seen /hpf (Few); Urobilinogen Urine 0.2 mg/dL (<2.0); WBC Urine 0-5 /hpf (0-3); pH Urine 7.5 (5.0-9.0)
[2023-08-23 14:36] LABS: Add Urine Microscopic? YES
--- NOTE | 2023-08-23 14:43 | ED.GENADULT ---
HPI - General Adult General Chief complaint: Unspecified Stated complaint: difficulty swallowing Time Seen by Provider: 08/23/23 12:25 History of Present Illness HPI narrative: patient is a 63-year-old female who presents emergency department with chief complaint of dysphagia. Patient has been living [facility] the chest in apartments for some time and they have noticed for a while the patient has been having difficulty swallowing even her pills the patient states that she can not swallow small amounts at a time but whenever she tries to swallow larger things feels as though things to still move through her neck. The patient reports that she has had no fever reports she is supposed to see GI reports no food being stuck in her throat reports he is able to handle her own secretions Related Data Home Medications Medication Instructions Recorded Confirmed acetaminophen 500 mg tablet 1,000 mg PO Q6H PRN fever or pain 07/26/21 10/03/21 albuterol sulfate 90 mcg/actuation 2 puff inhalation TID PRN 07/26/21 10/03/21 aerosol inhaler shortness of breath or wheezing baclofen 10 mg tablet 10 mg PO TID PRN 07/26/21 10/03/21 budesonide-formoterol HFA 160 2 puff inhalation Q12H 07/26/21 10/03/21 mcg-4.5 mcg/actuation aerosol inhaler (Symbicort) dextroamphetamine sulfate 10 mg 10 mg PO DAILY 07/26/21 10/03/21 tablet docusate sodium 100 mg capsule 100 mg PO BID 07/26/21 10/03/21 ferrous sulfate 325 mg (65 mg 325 mg PO TID 07/26/21 10/03/21 iron) tablet,delayed release fluticasone propionate 50 1 spray intranasal BID 07/26/21 10/03/21 mcg/actuation nasal spray,suspension (Allergy Relief (fluticasone)) ibuprofen 800 mg tablet 800 mg PO TID PRN pain 07/26/21 10/03/21 loratadine 10 mg tablet 10 mg PO DAILY 07/26/21 10/03/21 multivitamin 1 tablet PO DAILY 07/26/21 10/03/21 nicotine (polacrilex) 4 mg buccal 4 mg buccal Q3H PRN 07/26/21 10/03/21 lozenge (Nicorette) omeprazole 40 mg capsule,delayed 40 mg PO DAILY 07/26/21 10/03/21 release paliperidone palmitate 234 mg/1.5 234 mg IM MONTHLY 07/26/21 10/03/21 mL intramuscular syringe (Invega Sanchez) prazosin 1 mg capsule 1 mg PO TID 07/26/21 10/03/21 simvastatin 40 mg tablet 40 mg PO DAILY 07/26/21 10/03/21 sumatriptan succinate 100 mg tablet 100 mg PO ONCE PRN migraine 07/26/21 10/03/21 headache trihexyphenidyl 2 mg tablet 2 mg PO QHS 07/26/21 10/03/21 venlafaxine 150 mg 150 mg PO DAILY 07/26/21 10/03/21 capsule,extended release 24 hr venlafaxine 75 mg tablet 75 mg PO QAM 07/26/21 10/03/21 ziprasidone HCl 80 mg capsule 80 mg PO BID 07/26/21 10/03/21 Allergies Allergy/AdvReac Type Severity Reaction Status Date / Time diazepam Allergy Unknown Throat Verified 08/15/23 19:47 Swelling imipramine Allergy Unknown Seizure Verified 08/15/23 19:47 risperidone Allergy Unknown Throat Verified 08/15/23 19:47 Swelling WOOL AdvReac Unknown Other Uncoded 08/15/23 19:47 Review of Systems Review of Systems: A 10 system review of systems was completed on the patient and is negative except for what is stated in the HPI. Nursing and ancillary documentation was reviewed. [facility] Past Medical History Medical History Anxiety Asthma Depression Osteoarthritis UTI (urinary tract infection), bacterial Wears glasses Weight gain Surgical History Surgical History History of ankle surgery right ankle Dr. Lopez Family History Family History Other Arthritis Asthma Depression Social History Social History Smoking packs per day: 1 Smoking cigarettes per day: 20.0 Years smoked: 40 Smoking pack-years: 40.00 Smoking status: Current every day smoker Tobacco type: cigarettes Alcohol intake: never Substance us
--- NOTE | 2023-08-23 15:21 | PC.NURSE ---
patient is asking for chicken broth. nothing to eat/drink per provider at this time, patient aware
[2023-08-23 16:14] LABS: Troponin I < 0.012 ng/mL (0.000-0.034)
--- NOTE | 2023-08-23 16:35 | ADMGEN ---
This patient, Akanksha Ramires, was admitted to Medical Room 253-01. Patient/family oriented to hospital policies and general routines including ID bracelet, bed and alarms, visiting hours, pain management, procedures, bathroom and other care routines, personal items, smoking policy, room service/diet, and visiting hours. Information on how to activate the Rapid Response Team has been discussed. Patient/Family are encouraged to report perceived risks to care and to ask questions if they do not understand what they are told or what they should do.
--- NOTE | 2023-08-23 16:43 | PM.IMHP ---
H&P: HPI History of Present Illness Date/Time: 08/23/23 16:40 Chief Complaint: Difficulty swallowing. Narrative: This is a 63-year-old female with asthma, gastroesophageal reflux disease, anemia, hyperlipidemia, depression, anxiety, and schizophrenia presented to the emergency department via EMS from [facility] for evaluation of difficulty swallowing. The patient provides the following history. Staff at [place] have noticed that she seems to be having difficult time swallowing her pills for quite some time and they referred her to the ED on 08/15/2023 for evaluation. She did not have apparent issue swelling at that time and was discharged with instructions to follow-up with GI. She continues to have issues with dysphagia however and admits to occasional coughing with liquids which does not seem to happen if she uses a straw however. She occasionally has issues with solid foods as well. She has also lost about 50 lb in the last 4 months unintentionally. She does not feel as though the food gets stuck. She has frequent GERD symptoms and that is unchanged. She has not had any choking episodes and she denies concerns for aspiration. She also denies vertigo, difficulty speaking, sore throat, facial droop, focal weakness, paresthesias, abdominal pain, bloating, belching, vomiting, melena, and hematochezia. In the ED: Head CT showed no significant findings. Barium swallow x-ray showed mild esophageal dysmotility with poor progression of the primary peristaltic wave and multiple tertiary contractions in the mid to distal esophagus otherwise normal esophagus with no evident mass or stricture. She is being admitted in this setting for speech evaluation. Review of Systems Review of Systems: 12 systems were reviewed and are negative except for as per HPI. [facility] Past Medical History Medical History (Updated 08/23/23 @ 21:01 by Sadaf Baker PA-C) Anxiety Asthma Depression Gastroesophageal reflux disease Hyperlipidemia Osteoarthritis Schizophrenia Surgical History Surgical History (Updated 08/23/23 @ 16:50 by Sadaf Baker PA-C) History of open reduction and internal fixation (ORIF) procedure Repair right ankle fracture per Dr. Lopez. Family History Family History Other Arthritis Asthma Depression Social History Social History (Updated 08/23/23 @ 20:59 by Sadaf Baker PA-C) Social History: Surrogate medical decision maker: Barbara Ramires (daughter) or Ephraim Luong (significant other). Code status: Full code. Smoking packs per day: 1 Smoking cigarettes per day: 20.0 Years smoked: 40 Smoking pack-years: 40.00 Smoking status: Current every day smoker Tobacco type: cigarettes Alcohol intake: never Substance use: former Substance use type: does not use Last use: years ago Do You Feel Safe in your Home?: Yes Lack of Transportation: No Lack of Food: Never True Current Housing: I Have Housing Concerned About Future Housing: No Difficulty Paying Gas/Electric Bills: No Difficulty Paying for Meds: No Currently Unemployed: No Education: Grade School Difficulty w/ Childcare or Family Care: No Additional living arrangements comments: Currently living at [facility]. Additional occupation/education comments: Disabled. Spiritual care concerns: No Meds Home Medications and Allergies Home Medications Medication Instructions Recorded Confirmed Type albuterol sulfate 90 mcg/actuation 2 puff inhalation TID PRN 07/26/21 08/23/23 History aerosol inhaler shortness of breath or wheezing budesonide-formoterol HFA 160 2 puff inhalation Q12H 07/26/21 08/23/23 History mcg-4.5 mcg/actuation aerosol inhaler (Symbicort) docusate sodium 100 mg capsule 100 mg PO BID 07/26/21 08/23/23 History fluticasone propionate 50 1 spray intranasal BID 07/26/21 08/23/23 History mcg/actuation nasal sp
[2023-08-23] MEDS: SODIUM CHLORIDE 0.9% IV 1,000 ML 125 ML IV CONT (17:35)
[2023-08-23] MEDS: POTASSIUM CHLORIDE INJ 40 MEQ in SODIUM CHLORIDE 0.9% IV 500 ML 130 MEQ IVPB (17:35)
[2023-08-23] MEDS: ACETAMINOPHEN 325 MG TABLET 650 MG PO (20:26)
[2023-08-23] MEDS: traZODone HCL 50 MG TABLET 200 MG PO (22:04)
[2023-08-23] MEDS: TRIHEXYPHENIDYL HCL 2 MG TABLET PO (22:05)
[2023-08-23] MEDS: PRAZOSIN HCL 1 MG CAPSULE 2 MG PO (22:05)
[2023-08-23] MEDS: LORazepam (*CRX) 0.5 MG TABLET PO (22:05)
[2023-08-23] MEDS: MELATONIN 5 MG TABLET 10 MG PO (22:06)
[2023-08-24 05:42] LABS: Anion Gap 7 mmol/L (4-12); Blood Urea Nitrogen 4 mg/dL (7-17); Calcium 9.3 mg/dL (8.4-10.2); Carbon Dioxide 27 mmol/L (22-30); Chloride 105 mmol/L (98-107); Estimated CRCL calculation 65 ml/min; Estimated Glomerular Filt Rate > 60; Glucose 83 mg/dL (65-110); Magnesium 1.7 mg/dL (1.6-2.3); Potassium 3.5 mmol/L (3.4-5.0); Sodium 139 mmol/L (137-145)
[2023-08-24 06:00] VITALS: BP 125/76; PULSE 83; RESP 18; TEMP 36.9; O2SAT 98
--- NOTE | 2023-08-24 07:57 | PM.IMPN ---
Progress Note: A&P Assessment and Plan (1) Dysphagia: Code(s): R13.10 - Dysphagia, unspecified Status: Acute Assessment and Plan: 08/24/23: Head CT was negative Barium swallow shown Mild esophageal dysmotility with poor progression of the primary peristaltic wave and multiple tertiary contractions in the mid to distal esophagus. Otherwise normal esophagus with no evident mass or stricture. The majority of the swallows were suboptimal. GI consulted Will try glucagon as this will relax the smooth muscles in the esophagus in patients with psychological disorders Speech therapy consulted and will do a modified barium swallow study (2) Weight loss: Code(s): R63.4 - Abnormal weight loss Status: Acute Assessment and Plan: 08/24/23: Patient has lost 50 pounds unintentionally in the last 4 months Support Coordinator consulted (3) Severe protein-calorie malnutrition: Code(s): E43 - Unspecified severe protein-calorie malnutrition Status: Acute Assessment and Plan: See above plan of care (4) Hypokalemia: Code(s): E87.6 - Hypokalemia Status: Acute Assessment and Plan: 08/24/23: Potassium level 3.2 initially and was given potassium in the ER with recheck today showing 3.5 No further replacement required at this time (5) Hyperlipidemia: Code(s): E78.5 - Hyperlipidemia, unspecified Status: Acute Assessment and Plan: 08/24/23: Continue Simvastatin (6) Asthma: Code(s): J45.909 - Unspecified asthma, uncomplicated Status: Acute Assessment and Plan: 08/24/23: Continue albuterol rescue inhaler as needed (7) Gastroesophageal reflux disease: Code(s): K21.9 - Gastro-esophageal reflux disease without esophagitis Status: Acute Assessment and Plan: 08/24/23: Continue Pepcid (8) Psychiatric illness: Code(s): F99 - Mental disorder, not otherwise specified Status: Acute Assessment and Plan: 08/24/23: Lives at [facility] Has history of anxiety, depression, schizophrenia Home medications restarted Time Spent With Patient Time with patient: Greater than 35 minutes Subjective Date/time seen: 08/24/23 07:57 Interval history: This is a 63-year-old female who presented to hospital on 08/23/2023 with difficulty swallowing. Patient was brought in by EMS from [facility] after staff noted she was having difficulty swallowing some of her pills. She was seen once before on 08/15/2023 for the same symptoms however she did not have any apparent swelling at that time and was discharged with instructions to follow-up with GI. She has had a 50 lb unintentional weight loss in the last 4 months. Workup in the hospital included a head CT which was negative. Barium swallow which showed mild esophageal dysmotility with poor progression of the primary peristaltic wave and multiple tertiary contractions in the mid to distal esophagus otherwise normal esophagus with no evidence of mass or stricture. Initial labs showed a potassium of 3.2 otherwise unremarkable. UA was obtained and was negative. Respiratory panel was negative for influenza a and B, RSV, COVID. Patient denies any fever, chills, nausea, vomiting, diarrhea, abdominal pain, chest pain, shortness a breath. Patient endorses trouble with swallowing. Review of Systems Review of Systems: All systems reviewed & are unremarkable except as noted in HPI and below Constitutional: Constitutional: Reports as per HPI and Reports no additional constitutional complaints Eyes: Eyes: Reports as per HPI and Reports no additional eye complaints ENT: Reports system reviewed and no additional complaints, except as documented and Reports as per HPI Cardiovascular: Cardiovascular: Reports as per HPI and Reports no additional cardiovascular complaints Respiratory: Respiratory: Reports as per HPI and Reports no additional respiratory complaints
[2023-08-24 08:22] VITALS: RESP 16; O2SAT 98
[2023-08-24] MEDS: FLUTICASONE/SALMETEROL 115-21 MCG INHALER 1 PUFF 2 PUFF INHALATION ×2 (08:22→20:56)
[2023-08-24] MEDS: GLUCAGON FOR INJ 1 MG VIAL IM (08:38)
[2023-08-24] MEDS: DOCUSATE SODIUM 100 MG CAPSULE PO ×2 (09:40→18:11)
[2023-08-24] MEDS: ENOXAPARIN 40 MG/0.4 ML SYRINGE SUB-Q (09:40)
[2023-08-24] MEDS: CALCIUM/VITAMIN D 500 MG/5 MCG (200 I.U.) TABLET 1000 MG PO (09:40)
[2023-08-24] MEDS: CITALOPRAM HYDROBROMIDE 10 MG TABLET PO (09:40)
[2023-08-24] MEDS: LORATADINE 10 MG TABLET PO (09:41)
[2023-08-24] MEDS: MULTIVITAMINS THERAPEUTIC TAB (*BKC) 1 TABLET PO (09:41)
[2023-08-24] MEDS: FLUTICASONE PROPIONATE 0.05% NA SPR 16 GM BTL (*BKC) 1 SPRAY NASAL (09:41)
[2023-08-24] MEDS: SIMVASTATIN 20 MG TABLET 40 MG PO (09:41)
[2023-08-24] MEDS: PRAZOSIN HCL 1 MG CAPSULE PO (09:41)
[2023-08-24] MEDS: FAMOTIDINE 20 MG TABLET PO (09:41)
[2023-08-24 14:00] VITALS: BP 139/83; PULSE 71; RESP 14; TEMP 36.7; O2SAT 98
--- NOTE | 2023-08-24 14:29 | PHAR ---
PT'S HOME MED INGREZZA 80 MG CAPSULES VERIFIED BY PHARMACY
[2023-08-24 19:59] VITALS: BP 154/82; PULSE 65; RESP 17; TEMP 36.4; O2SAT 98
[2023-08-24 20:00] VITALS: PULSE 65; RESP 15; O2SAT 98
[2023-08-24] MEDS: TRIHEXYPHENIDYL HCL 2 MG TABLET PO (20:05)
[2023-08-24] MEDS: traZODone HCL 50 MG TABLET 200 MG PO (20:05)
[2023-08-24] MEDS: PRAZOSIN HCL 1 MG CAPSULE 2 MG PO (20:05)
[2023-08-24] MEDS: ACETAMINOPHEN 325 MG TABLET 650 MG PO (20:06)
[2023-08-24] MEDS: MELATONIN 5 MG TABLET 10 MG PO (20:07)
[2023-08-24] MEDS: LORazepam (*CRX) 0.5 MG TABLET PO (20:07)
[2023-08-24 20:57] VITALS: RESP 15
[2023-08-25 05:16] VITALS: BP 115/64; PULSE 60; RESP 17; TEMP 37; O2SAT 98
[2023-08-25 07:28] VITALS: PULSE 63; RESP 20; O2SAT 94
[2023-08-25] MEDS: FLUTICASONE/SALMETEROL 115-21 MCG INHALER 1 PUFF 2 PUFF INHALATION (07:28)
--- NOTE | 2023-08-25 07:28 | P.PNIM_ITS ---
Progress Note: A&P Assessment and Plan (1) Dysphagia: Qualifiers: Dysphagia type: oropharyngeal phase Qualified Code(s): R13.12 - Dysphagia, oropharyngeal phase Code(s): R13.10 - Dysphagia, unspecified Status: Acute Assessment and Plan: 08/24/23: * Head CT was negative * Barium swallow shown Mild esophageal dysmotility with poor progression of the primary peristaltic wave and multiple tertiary contractions in the mid to distal esophagus. Otherwise normal esophagus with no evident mass or stricture. The majority of the swallows were suboptimal. * GI consulted * Will try glucagon as this will relax the smooth muscles in the esophagus in patients with psychological disorders * Speech therapy consulted and will do a modified barium swallow study 08/24: * Speech recommending pureed and mildly thick liquids * GI is seeing today * Patient reports swallowing improved with glucagon * Likely discharge today with outpatient GI follow up and speech therapy outpatient (2) Weight loss: Code(s): R63.4 - Abnormal weight loss Status: Acute Assessment and Plan: 08/24/23: * Patient has lost 50 pounds unintentionally in the last 4 months * Apricot Washer consulted (3) Severe protein-calorie malnutrition: Code(s): E43 - Unspecified severe protein-calorie malnutrition Status: Acute Assessment and Plan: See above plan of care (4) Hypokalemia: Code(s): E87.6 - Hypokalemia Status: Acute Assessment and Plan: * 08/24/23: * Potassium level 3.2 initially and was given potassium in the ER with recheck today showing 3.5 * No further replacement required at this time 08/24: * K+ 3.7 today * Can start K+ 20 meq daily (5) Hyperlipidemia: Code(s): E78.5 - Hyperlipidemia, unspecified Status: Acute Assessment and Plan: 08/24/23: * Continue Simvastatin (6) Asthma: Code(s): J45.909 - Unspecified asthma, uncomplicated Status: Acute Assessment and Plan: 08/24/23: * Continue albuterol rescue inhaler as needed (7) Gastroesophageal reflux disease: Qualifiers: Esophagitis presence: esophagitis presence not specified Qualified Code(s): K21.9 - Gastro-esophageal reflux disease without esophagitis Code(s): K21.9 - Gastro-esophageal reflux disease without esophagitis Status: Acute Assessment and Plan: 08/24/23: * Continue Pepcid (8) Psychiatric illness: Code(s): F99 - Mental disorder, not otherwise specified Status: Acute Assessment and Plan: 08/24/23: * Lives at [facility] * Has history of anxiety, depression, schizophrenia * Home medications restarted Subjective Date/time seen: 08/25/23 07:28 Interval history: This is a 63-year-old female with asthma, gastroesophageal reflux disease, anemia, hyperlipidemia, depression, anxiety, and schizophrenia presented to the emergency department via EMS from [facility] for evaluation of difficulty swallowing. 08/24: Patient is seen resting in bed in no acute distress. She answers my questions appropriately but is withdrawn. She reports that her swallowing improved after receiving glucagon. She has tolerated a diet the last two days. Speech did a modified barium swallow today. GI is also consulted to see her. Review of Systems Review of Systems: All systems reviewed & are unremarkable except as noted in HPI and below Exam Narrative: General: thin, frail,
--- NOTE | 2023-08-25 07:28 | PM.IMPN ---
Progress Note: A&P Assessment and Plan (1) Dysphagia: Qualifiers: Dysphagia type: oropharyngeal phase Qualified Code(s): R13.12 - Dysphagia, oropharyngeal phase Code(s): R13.10 - Dysphagia, unspecified Status: Acute Assessment and Plan: 08/24/23: Head CT was negative Barium swallow shown Mild esophageal dysmotility with poor progression of the primary peristaltic wave and multiple tertiary contractions in the mid to distal esophagus. Otherwise normal esophagus with no evident mass or stricture. The majority of the swallows were suboptimal. GI consulted Will try glucagon as this will relax the smooth muscles in the esophagus in patients with psychological disorders Speech therapy consulted and will do a modified barium swallow study 08/24: Speech recommending pureed and mildly thick liquids GI is seeing today Patient reports swallowing improved with glucagon Likely discharge today with outpatient GI follow up and speech therapy outpatient (2) Weight loss: Code(s): R63.4 - Abnormal weight loss Status: Acute Assessment and Plan: 08/24/23: Patient has lost 50 pounds unintentionally in the last 4 months Retail Advertising Account Executive consulted (3) Severe protein-calorie malnutrition: Code(s): E43 - Unspecified severe protein-calorie malnutrition Status: Acute Assessment and Plan: See above plan of care (4) Hypokalemia: Code(s): E87.6 - Hypokalemia Status: Acute Assessment and Plan: 08/24/23: Potassium level 3.2 initially and was given potassium in the ER with recheck today showing 3.5 No further replacement required at this time 08/24: K+ 3.7 today Can start K+ 20 meq daily (5) Hyperlipidemia: Code(s): E78.5 - Hyperlipidemia, unspecified Status: Acute Assessment and Plan: 08/24/23: Continue Simvastatin (6) Asthma: Code(s): J45.909 - Unspecified asthma, uncomplicated Status: Acute Assessment and Plan: 08/24/23: Continue albuterol rescue inhaler as needed (7) Gastroesophageal reflux disease: Qualifiers: Esophagitis presence: esophagitis presence not specified Qualified Code(s): K21.9 - Gastro-esophageal reflux disease without esophagitis Code(s): K21.9 - Gastro-esophageal reflux disease without esophagitis Status: Acute Assessment and Plan: 08/24/23: Continue Pepcid (8) Psychiatric illness: Code(s): F99 - Mental disorder, not otherwise specified Status: Acute Assessment and Plan: 08/24/23: Lives at [facility] Has history of anxiety, depression, schizophrenia Home medications restarted Subjective Date/time seen: 08/25/23 07:28 Interval history: This is a 63-year-old female with asthma, gastroesophageal reflux disease, anemia, hyperlipidemia, depression, anxiety, and schizophrenia presented to the emergency department via EMS from [facility] for evaluation of difficulty swallowing. 08/24: Patient is seen resting in bed in no acute distress. She answers my questions appropriately but is withdrawn. She reports that her swallowing improved after receiving glucagon. She has tolerated a diet the last two days. Speech did a modified barium swallow today. GI is also consulted to see her. Review of Systems Review of Systems: All systems reviewed & are unremarkable except as noted in HPI and below Exam Narrative: General: thin, frail, appears stated age. HEENT: normocephalic, atraumatic. Mucous membranes moist. EOMI, PERRLA, bilateral sclera anicteric, no conjunctival injection. Neck supple without JVD, lymphadenopathy, or bruit. Respiratory: clear to auscultation bilaterally. No rales/rhonic/wheezes. Cardiovascular: Regular rate and rhythm, normal S1-S2 upon auscultation. No murmurs, rubs, or clicks. PMI is nondisplaced, capillary refill less than 3 second. Abdomen: Soft, flat, no pulsatile masses, nondistended
--- NOTE | 2023-08-25 08:03 | WPDGICN ---
Assessment and Plan Assessment and plan (1) Dysphagia: Qualifiers: Dysphagia type: oropharyngeal phase Qualified Code(s): R13.12 - Dysphagia, oropharyngeal phase Code(s): R13.10 - Dysphagia, unspecified Status: Acute (2) Weight loss: Code(s): R63.4 - Abnormal weight loss Status: Acute (3) Gastroesophageal reflux disease: Qualifiers: Esophagitis presence: esophagitis presence not specified Qualified Code(s): K21.9 - Gastro-esophageal reflux disease without esophagitis Code(s): K21.9 - Gastro-esophageal reflux disease without esophagitis Status: Acute Plan 1. Dysphagia/GERD: Per patient she has never had an EGD.Barium swallow on 08/23/2023 showed mild esophageal dysmotility with poor progression of the primary peristaltic wave and multiple tertiary contractions in the mid to distal esophagus, otherwise normal esophagus with no evident mass or stricture. Modified barium swallow on 08/25/2023 showed pharyngeal dysphagia with laryngeal penetration and aspiration eliciting only a delayed and weak cough. Patient reports difficulty swallowing started months ago and feels like it is getting stuck in the upper portion of her throat. per speech therapy recommendations/evaluation patient reports difficulty masticate and but unsure of etiology. Reduced laryngeal elevation contributing to trace penetration on all liquids per cup straw and with and without head flexion. Delayed throat clearing that was judged to be weak. Results suggest mild risk for aspiration on thin liquids. Unsure of what makes patient concerned about solid foods. The patient may have pureed diet level 4 and mildly thick liquids, level 2. At this time was outpatient speech therapy to follow up for swallowing strengthening exercises to assist with return to regular diet. Follow speech therapy recommendations for feeding and swallowing precautions Continue thickener with liquids as recommended by speech therapy continue famotidine 20 mg daily if reflux becomes more frequent or problematic may consider outpatient EGD given that she has never had one 2. Weight loss: Per notes patient has lost approximately 50 lb over the past 4 months per patient this is an unexplained weight loss. BMP, CBC, and LFTs normal. For patient last colonoscopy was performed in [place] a long time ago . Family history negative for CRC or IBD. consider outpatient colonoscopy +/- EGD Thank you very much for allowing me to share in the care of this patient. This report may have been done utilizing a voice recognition system. Attempts have been made to correct errors. However, there may be uncorrected grammatical, spelling, and recognition errors present. GI Consult Note Consult date/time: 08/25/23 08:03 Reason for consult: Dysphagia HPI: Akanksha Ramires is a 63 year old female with PMSH of asthma, gastroesophageal reflux disease, anemia, hyperlipidemia, depression, anxiety, and schizophrenia presented to the emergency department 08/23/2023 via EMS from [facility] for evaluation of difficulty swallowing. Patient was previously seen in the ER 08/15/2023 with similar complaints and was advised to follow up with GI outpatient. She was having persistent symptoms and coughing with liquids and returned back to the ER for evaluation. GI consulted for dysphagia. She reports the difficulty swallowing started months ago. She states I don't feel like it's getting stuck. I just can't swallow. She reports it feels like it is getting stuck way up high there with anything including wires . She states it goes into my lungs. She denies abdominal pain, nausea or vomiting. She denies odynophagia. She endorses heartburn symptoms and reports her famotidine doesn't help the heartburn and it's all bad. Her appetite has been alright. She reports having bowel movements early and sometimes has to strain. She takes Milk of M
[2023-08-25 08:37] LABS: Basophils Absolute Auto 0.1 K/mm3 (0.0-0.1); Eosinophils Absolute Auto 0.1 K/mm3 (0-0.3); Eosinophils Percent Auto 1.5 % (0-4.4); Hematocrit 39.3 % (37.0-47.0); Hemoglobin 13.1 g/dL (12.0-15.0); Immature Granulocyte Absolute 0.01 K/mm3 (0.00-0.031); Immature Granulocyte Percent A 0.1 % (0-0.5); Lymphocytes Percent Auto 32.1 % (18.3-44.2); Mean Corpuscular HGB Conc 33.3 g/dl (32-36); Mean Corpuscular Hemoglobin 32.9 pg (26-34); Mean Corpuscular Volume 98.7 fl (80-100); Mean Platelet Volume 9.5 fl (7.4-10.4); Monocytes Absolute Auto 0.6 K/mm3 (0.1-0.6); Monocytes Percent Auto 8.8 % (2.6-8.5); Neutrophils Absolute Auto 4.1 K/mm3 (1.3-6.7); Neutrophils Percent Auto 56.5 % (45.5-73.1); Platelet Count Result 266 k/mm3 (150-375); Red Blood Count 3.98 M/mm3 (4.2-5.4); Red Cell Distribution Width 14.8 % (11.5-14.5); White Blood Count 7.2 K/mm3 (4.5-10.0)
[2023-08-25 08:47] LABS: Alanine Aminotransferase 14 U/L (6-35); Albumin Level 3.6 g/dL (3.5-5.1); Alkaline Phosphatase 58 U/L (38-126); Anion Gap 6 mmol/L (4-12); Aspartate Amino Transferase 23 U/L (14-36); Bilirubin,Total 0.6 mg/dL (0.2-1.3); Blood Urea Nitrogen 4 mg/dL (7-17); Calcium 9.7 mg/dL (8.4-10.2); Carbon Dioxide 30 mmol/L (22-30); Chloride 103 mmol/L (98-107); Estimated CRCL calculation 67 ml/min; Estimated Glomerular Filt Rate > 60; Glucose 93 mg/dL (65-110); Potassium 3.7 mmol/L (3.4-5.0); Sodium 139 mmol/L (137-145)
[2023-08-25] MEDS: CALCIUM/VITAMIN D 500 MG/5 MCG (200 I.U.) TABLET 1000 MG PO (10:52)
[2023-08-25] MEDS: PRAZOSIN HCL 1 MG CAPSULE PO (10:52)
[2023-08-25] MEDS: DOCUSATE SODIUM 100 MG CAPSULE PO (10:52)
[2023-08-25] MEDS: SIMVASTATIN 20 MG TABLET 40 MG PO (10:52)
[2023-08-25] MEDS: MULTIVITAMINS THERAPEUTIC TAB (*BKC) 1 TABLET PO (10:52)
[2023-08-25] MEDS: ENOXAPARIN 40 MG/0.4 ML SYRINGE SUB-Q (10:53)
[2023-08-25] MEDS: CITALOPRAM HYDROBROMIDE 10 MG TABLET PO (10:53)
[2023-08-25] MEDS: FAMOTIDINE 20 MG TABLET PO (10:53)
[2023-08-25] MEDS: LORATADINE 10 MG TABLET PO (10:53)
[2023-08-25] MEDS: FLUTICASONE PROPIONATE 0.05% NA SPR 16 GM BTL (*BKC) 1 SPRAY NASAL (10:54)
--- NOTE | 2023-08-25 10:57 | PCSTNOTE ---
Please refer to the Modified Barium Swallow Evaluation in the EMR.
[2023-08-25 13:42] VITALS: BMI 19.0
[2023-08-25 14:00] VITALS: BP 145/83; PULSE 96; RESP 14; TEMP 36.6; O2SAT 98
--- NOTE | 2023-08-25 14:16 | P.DS_ITS ---
DS: Admitting Diagnosis Discharge Date 08/24 Admitting Diagnosis difficulty swallowing DS: Discharge Diagnosis Discharge Diagnosis (1) Dysphagia: Qualifiers: Dysphagia type: oropharyngeal phase Qualified Code(s): R13.12 - Dysphagia, oropharyngeal phase Code(s): R13.10 - Dysphagia, unspecified Status: Acute Assessment and Plan: 08/24/23: * Head CT was negative * Barium swallow shown Mild esophageal dysmotility with poor progression of the primary peristaltic wave and multiple tertiary contractions in the mid to distal esophagus. Otherwise normal esophagus with no evident mass or stricture. The majority of the swallows were suboptimal. * GI consulted * Will try glucagon as this will relax the smooth muscles in the esophagus in patients with psychological disorders * Speech therapy consulted and will do a modified barium swallow study 08/24: * Speech recommending pureed and mildly thick liquids * GI is seeing today * Patient reports swallowing improved with glucagon * Likely discharge today with outpatient GI follow up and speech therapy outpatient (2) Weight loss: Code(s): R63.4 - Abnormal weight loss Status: Acute Assessment and Plan: 08/24/23: * Patient has lost 50 pounds unintentionally in the last 4 months * Data Base Design Analyst consulted (3) Severe protein-calorie malnutrition: Code(s): E43 - Unspecified severe protein-calorie malnutrition Status: Acute Assessment and Plan: See above plan of care (4) Hypokalemia: Code(s): E87.6 - Hypokalemia Status: Acute Assessment and Plan: * 08/24/23: * Potassium level 3.2 initially and was given potassium in the ER with recheck today showing 3.5 * No further replacement required at this time 08/24: * K+ 3.7 today * Can start K+ 20 meq daily (5) Hyperlipidemia: Code(s): E78.5 - Hyperlipidemia, unspecified Status: Acute Assessment and Plan: 08/24/23: * Continue Simvastatin (6) Asthma: Code(s): J45.909 - Unspecified asthma, uncomplicated Status: Acute Assessment and Plan: 08/24/23: * Continue albuterol rescue inhaler as needed (7) Gastroesophageal reflux disease: Qualifiers: Esophagitis presence: esophagitis presence not specified Qualified C ode(s): K21.9 - Gastro-esophageal reflux disease without esophagitis Code(s): K21.9 - Gastro-esophageal reflux disease without esophagitis Status: Acute Assessment and Plan: 08/24/23: * Continue Pepcid (8) Psychiatric illness: Code(s): F99 - Mental disorder, not otherwise specified Status: Acute Assessment and Plan: 08/24/23: * Lives at [facility] * Has history of anxiety, depression, schizophrenia * Home medications restarted DS: Summary Hospital Course Reason for hospitalization: dysphagia Hospital Course: This is a 63-year-old female with asthma, gastroesophageal reflux disease, anemia, hyperlipidemia, depression, anxiety, and schizophrenia presented to the emergency department via EMS from [facility] for evaluation of difficulty swallowing. Patient has been seen a couple times for this before. This admission she underwent a modified barium swallow with speech eval. They recommended. It mildly thick liquids as she did have some small concerns for aspiration. They recommend outpatient speech therapy. GI was also consulted they recommend continuing Pepcid and following up with GI as an outpatient for E GD and colonoscopy.
--- NOTE | 2023-08-25 14:16 | PM.DS ---
DS: Admitting Diagnosis Discharge Date 08/24 Admitting Diagnosis difficulty swallowing DS: Discharge Diagnosis Discharge Diagnosis (1) Dysphagia: Qualifiers: Dysphagia type: oropharyngeal phase Qualified Code(s): R13.12 - Dysphagia, oropharyngeal phase Code(s): R13.10 - Dysphagia, unspecified Status: Acute Assessment and Plan: 08/24/23: Head CT was negative Barium swallow shown Mild esophageal dysmotility with poor progression of the primary peristaltic wave and multiple tertiary contractions in the mid to distal esophagus. Otherwise normal esophagus with no evident mass or stricture. The majority of the swallows were suboptimal. GI consulted Will try glucagon as this will relax the smooth muscles in the esophagus in patients with psychological disorders Speech therapy consulted and will do a modified barium swallow study 08/24: Speech recommending pureed and mildly thick liquids GI is seeing today Patient reports swallowing improved with glucagon Likely discharge today with outpatient GI follow up and speech therapy outpatient (2) Weight loss: Code(s): R63.4 - Abnormal weight loss Status: Acute Assessment and Plan: 08/24/23: Patient has lost 50 pounds unintentionally in the last 4 months Pin Sticker consulted (3) Severe protein-calorie malnutrition: Code(s): E43 - Unspecified severe protein-calorie malnutrition Status: Acute Assessment and Plan: See above plan of care (4) Hypokalemia: Code(s): E87.6 - Hypokalemia Status: Acute Assessment and Plan: 08/24/23: Potassium level 3.2 initially and was given potassium in the ER with recheck today showing 3.5 No further replacement required at this time 08/24: K+ 3.7 today Can start K+ 20 meq daily (5) Hyperlipidemia: Code(s): E78.5 - Hyperlipidemia, unspecified Status: Acute Assessment and Plan: 08/24/23: Continue Simvastatin (6) Asthma: Code(s): J45.909 - Unspecified asthma, uncomplicated Status: Acute Assessment and Plan: 08/24/23: Continue albuterol rescue inhaler as needed (7) Gastroesophageal reflux disease: Qualifiers: Esophagitis presence: esophagitis presence not specified Qualified Code(s): K21.9 - Gastro-esophageal reflux disease without esophagitis Code(s): K21.9 - Gastro-esophageal reflux disease without esophagitis Status: Acute Assessment and Plan: 08/24/23: Continue Pepcid (8) Psychiatric illness: Code(s): F99 - Mental disorder, not otherwise specified Status: Acute Assessment and Plan: 08/24/23: Lives at [facility] building Has history of anxiety, depression, schizophrenia Home medications restarted DS: Summary Hospital Course Reason for hospitalization: dysphagia Hospital Course: This is a 63-year-old female with asthma, gastroesophageal reflux disease, anemia, hyperlipidemia, depression, anxiety, and schizophrenia presented to the emergency department via EMS from [facility] for evaluation of difficulty swallowing. Patient has been seen a couple times for this before. This admission she underwent a modified barium swallow with speech eval. They recommended. It mildly thick liquids as she did have some small concerns for aspiration. They recommend outpatient speech therapy. GI was also consulted they recommend continuing Pepcid and following up with GI as an outpatient for EGD and colonoscopy. The patient received IM glucagon to help relax smooth muscle and this seemed a improve her swallowing. Overall she did well and she was tolerating a diet without abdominal pain, nausea, vomiting, or choking was able to discharge back to her facility in stable condition Time Spent with Patient Time attestation: Total time spent providing and/or coordinating discharge services:69 Exam Narrative: General: thin, frail, appears stated
== END 2023-08-25 16:55 | disposition home or self-care (01) ==
LOC: ANHED 15:35 → ANH2MED 16:13
PROVIDERS: Physician Assistant; Admitting Provider Internal Medicine; Emergency Provider Emergency Medicine; PCP Emergency Medicine; Visit Provider Nurse Practitioner Acute Care
DX: R13.12 Dysphagia, oropharyngeal phase (principal); E87.6 Hypokalemia; J45.909 Unspecified asthma, uncomplicated; F41.9 Anxiety disorder, unspecified; F32.A Depression, unspecified; E43 Unspecified severe protein-calorie malnutrition; R63.4 Abnormal weight loss; Z68.1 Body mass index [BMI] 19.9 or less, adult; F20.9 Schizophrenia, unspecified; E78.5 Hyperlipidemia, unspecified; K21.9 Gastro-esophageal reflux disease without esophagitis; Z79.51 Long term (current) use of inhaled steroids; F17.210 Nicotine dependence, cigarettes, uncomplicated; Z20.822 Contact with and (suspected) exposure to COVID-19
CPT/HCPCS: 36415; 70450; 71045; 74220; 80048; 80053; 81001; 83605; 83735; 83880; 84145; 84484; 85025; 85610; 85730; 87637; 92611; 93005; 94640; 96374; 99285; A9270; G0378; G0379; J1610; J1650; J3480; J7030; J7040

== ENCOUNTER 2023-09-03 18:37 | Emergency (ER) | payer OTHER, SELFPAY ==
[2023-09-03] VITALS (27 sets, daily range): BP systolic 107–144; BP diastolic 70–90; PULSE 58–103; RESP 12–28; TEMP 36.7; O2SAT 93–98
--- NOTE | ~2023-09-03 | CT_ITS ---
EXAMINATION: CTA chest PE protocol DATE: 09/03/2023 22:38 INDICATION: sob, + dimer TECHNIQUE: Computed tomography angiography (CTA) of the chest was performed with 100 mL Omnipaque-350 intravenous contrast timed to evaluate the pulmonary arteries. Coronal maximum intensity projection 3D-reconstructions were created by the technologist. The dose-length product (DLP) was 146.47 mGy-cm. Automated exposure control and iterative reconstruction technique were employed. COMPARISON: X-ray chest same date. FINDINGS: Lung parenchyma and airways: Mild emphysematous change. Patent airways. Pleura: Unremarkable. Thoracic inlet, axillae and chest wall: 2.1 cm left thyroid nodule. Thoracic aorta: No significant dilation. No dissection. Mild arch calcification. Mediastinum: Normal. Heart and pericardium: Normal. Coronary artery calcifications: Absent. Upper abdomen: No significant finding. Bones: No acute osseous finding. Exaggerated thoracic kyphosis. Pulmonary arteries: Study quality: Adequate. No pulmonary emboli detected. IMPRESSION: No CT evidence of acute pulmonary embolus. No acute process detected in the chest. 2.1 cm left thyroid nodule, recommend nonemergent outpatient thyroid ultrasound for further character ization. Reviewed, dictated and finalized at location K. IMPRESSION: No CT evidence of acute pulmonary embolus. No acute process detected in the chest. 2.1 cm left thyroid nodule, recommend nonemergent outpatient thyroid ultrasound for further characterization.
--- NOTE | ~2023-09-03 | XR_ITS ---
EXAMINATION: XR chest 2V Exam Date/Time: 09/03/2023 19:09 CDT HISTORY: SOB Comparison: 08/23/2023. RESULT: Lines, tubes, and devices: None. Lungs and pleura: Rightward rotation frontal view. Emphysematous change, otherwise clear. Cardiomediastinal silhouette: Stable. Other: No acute osseous or upper abdominal finding. IMPRESSION: No acute cardiopulmonary process. Reviewed, dictated and finalized at location K.
--- NOTE | 2023-09-03 18:42 | ECG_ITS ---
Test Date: 2023-09-03 18:47:28 Measurements Intervals [place] Rate: 93 P: 66 NE: 147 QRS: 55 QRSD: 81 T: 73 QT: 265 QTc: 330 Interpretive Statements SINUS RHYTHM NONSPECIFIC T-WAVE ABNORMALITY- INFERIOR LEADS BASELINE ARTIFACT- I, II, III, AVR, AVL, AVF, V1-V6 BORDERLINE ECG Compared to ECG 08/23/2023 12:45:54 No significant changes Electronically Signed On 09-04-2023 06:01:42 CDT by Rosales Mckeon D.O.
[2023-09-03 18:54] LABS: Basophils Absolute Auto 0.1 K/mm3 (0.0-0.1); Basophils Percent Auto 0.6 % (0.2-1.2); Eosinophils Absolute Auto 0.1 K/mm3 (0-0.3); Eosinophils Percent Auto 1.6 % (0-4.4); Hemoglobin 12.6 g/dL (12.0-15.0); Immature Granulocyte Absolute 0.02 K/mm3 (0.00-0.031); Immature Granulocyte Percent A 0.2 % (0-0.5); Lymphocytes Absolute Auto 2.72 K/mm3 (0.9-3.2); Lymphocytes Percent Auto 31.7 % (18.3-44.2); Mean Corpuscular HGB Conc 33.2 g/dl (32-36); Mean Corpuscular Hemoglobin 33.1 pg (26-34); Mean Corpuscular Volume 99.7 fl (80-100); Mean Platelet Volume 9.3 fl (7.4-10.4); Monocytes Absolute Auto 0.8 K/mm3 (0.1-0.6); Monocytes Percent Auto 9.8 % (2.6-8.5); Neutrophils Absolute Auto 4.8 K/mm3 (1.3-6.7); Neutrophils Percent Auto 56.1 % (45.5-73.1); Platelet Count Result 264 k/mm3 (150-375); Red Blood Count 3.81 M/mm3 (4.2-5.4); Red Cell Distribution Width 14.6 % (11.5-14.5); White Blood Count 8.6 K/mm3 (4.5-10.0)
[2023-09-03 19:03] LABS: Alanine Aminotransferase 15 U/L (6-35); Albumin Level 3.7 g/dL (3.5-5.1); Alkaline Phosphatase 51 U/L (38-126); Anion Gap 5 mmol/L (4-12); Aspartate Amino Transferase 25 U/L (14-36); Bilirubin,Total 0.4 mg/dL (0.2-1.3); Blood Urea Nitrogen 9 mg/dL (7-17); Calcium 9.7 mg/dL (8.4-10.2); Carbon Dioxide 31 mmol/L (22-30); Chloride 101 mmol/L (98-107); Estimated CRCL calculation 62 ml/min; Estimated Glomerular Filt Rate > 60; Glucose 110 mg/dL (65-110); Potassium 3.7 mmol/L (3.4-5.0); Sodium 137 mmol/L (137-145)
[2023-09-03 20:40] LABS: NT Pro B Type Natriuretic Pept 158 pg/mL (19.9-100); Troponin I < 0.012 ng/mL (0.000-0.034)
--- NOTE | 2023-09-03 21:17 | ED.SOB ---
HPI - SOB/Dyspnea General Chief Complaint: Shortness of Breath/Dyspnea Stated Complaint: TROUBLE BREATHING Time Seen by Provider: 09/03/23 19:43 Source: patient Mode of arrival: EMS Limitations: no limitations History of Present Illness HPI Narrative: Patient is a 63-year-old female, with past medical history of anxiety, depression, schizophrenia, who presents the ED via EMS with report of shortness breath. Patient is currently residing at [facility]. She reports she used her asthma inhaler today and then began feeling short of breath afterwards. She felt as though she cannot take a deep breath, EMS was then prompted to bring the patient here. Patient is feeling improved currently. Denies chest pain, recent cough or cold symptoms, lower extremity pain or swelling, history of blood clots. Related Data Home Medications Medication Instructions Recorded Confirmed albuterol sulfate 90 mcg/actuation 2 puff inhalation TID PRN 07/26/21 08/23/23 aerosol inhaler shortness of breath or wheezing budesonide-formoterol HFA 160 2 puff inhalation Q12H 07/26/21 08/23/23 mcg-4.5 mcg/actuation aerosol inhaler (Symbicort) docusate sodium 100 mg capsule 100 mg PO BID 07/26/21 08/23/23 fluticasone propionate 50 1 spray intranasal BID 07/26/21 08/23/23 mcg/actuation nasal spray,suspension (Allergy Relief (fluticasone)) loratadine 10 mg tablet 10 mg PO DAILY 07/26/21 08/23/23 multivitamin 1 tablet PO DAILY 07/26/21 08/23/23 prazosin 1 mg capsule 1 mg PO HS 07/26/21 08/23/23 simvastatin 40 mg tablet 40 mg PO DAILY 07/26/21 08/23/23 trihexyphenidyl 2 mg tablet 2 mg PO QHS 07/26/21 08/23/23 calcium carbonate 600 mg-vitamin 2 tablet PO DAILY 08/23/23 08/23/23 D3 10 mcg (400 unit) tablet (Calcium with Vitamin D) citalopram 10 mg tablet 10 mg PO DAILY 08/23/23 08/23/23 famotidine 20 mg tablet (Pepcid) 20 mg PO DAILY 08/23/23 08/23/23 fluticasone 113 mcg-salmeterol 14 1 inh inhalation BID 08/23/23 08/23/23 mcg/actuation 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AirDuo RespiClick) lorazepam 0.5 mg tablet 0.5 mg PO HS 08/23/23 08/23/23 melatonin 10 mg tablet 10 mg PO HS PRN Insomnia 08/23/23 08/23/23 meloxicam 15 mg tablet 15 mg PO DAILY 08/23/23 08/23/23 paliperidone palm (6 month) 1,560 1,560 mg IM [id number] 08/23/23 08/23/23 mg/5 mL intramuscular syringe ([facility]) trazodone 100 mg tablet 200 mg PO HS PRN Insomnia 08/23/23 08/23/23 valbenazine 80 mg capsule 80 mg PO HS 08/23/23 08/23/23 (Ingrezza) Allergies Allergy/AdvReac Type Severity Reaction Status Date / Time diazepam Allergy Unknown Throat Verified 09/03/23 19:07 Swelling imipramine Allergy Unknown Seizure Verified 09/03/23 19:07 risperidone Allergy Unknown Throat Verified 09/03/23 19:07 Swelling WOOL AdvReac Unknown Other Uncoded 09/03/23 19:07 Review of Systems Review of Systems: CONSTITUTIONAL: Denies fever, chills, or sweats. ENT: Denies rhinorrhea, congestion, sore throat CARDIOVASCULAR: Denies chest pain, palpitations, or edema. RESPIRATORY: see HPI. All systems reviewed & are unremarkable except as noted in HPI and below PMFSH Past Medical History Medical History Anxiety Asthma Depression Gastroesophageal reflux disease Hyperlipidemia Osteoarthritis Schizophrenia Surgical History Surgical History History of open reduction and internal fixation (ORIF) procedure Repair right ankle fracture per Dr. Lopez. Family History Family History Other Arthritis Asthma Depression Social History Social History Social History: Surrogate medical decision maker: Barbara Keyla (daughter) or Ephraim Luong (significant other). Code status: Full code. Smoking packs per day: 1 Smoking cig
[2023-09-03 22:04] LABS: D Dimer 1.19 ug/mL (<0.48)
[2023-09-04 00:01] VITALS: BP 108/60; PULSE 60; RESP 15; O2SAT 97
== END 2023-09-04 00:30 | disposition home or self-care (01) ==
PROVIDERS: Emergency Medicine; Emergency Provider Physician Assistant; PCP Emergency Medicine
DX: R06.02 Shortness of breath (principal); J45.909 Unspecified asthma, uncomplicated; E78.5 Hyperlipidemia, unspecified; K21.9 Gastro-esophageal reflux disease without esophagitis; M19.90 Unspecified osteoarthritis, unspecified site; F41.9 Anxiety disorder, unspecified; F32.A Depression, unspecified; F20.9 Schizophrenia, unspecified; F17.210 Nicotine dependence, cigarettes, uncomplicated; Z79.899 Other long term (current) drug therapy; E04.1 Nontoxic single thyroid nodule; R94.31 Abnormal electrocardiogram [ECG] [EKG]
CPT/HCPCS: 36415; 71046; 71275; 80053; 83880; 84484; 85025; 85380; 93005; 99284; Q9967

== ENCOUNTER 2023-09-10 21:55 | Observation (INO) | payer OTHER, SELFPAY ==
--- NOTE | ~2023-09-10 | XR_ITS ---
EXAMINATION: XR chest 1V portable DATE: 09/10/2023 22:20 INDICATION: Syncope TECHNIQUE: frontal view of the chest was obtained. COMPARISON: Chest radiograph dated 09/03/2023 FINDINGS: Lungs are clear with no focal airspace opacities, pulmonary edema, pleural effusion or pneumothorax. Cardiomediastinal silhouette is within normal limits accounting for AP technique and rightward rotati on of the patient. Couple old healed left rib fractures. IMPRESSION: 1. No acute cardiopulmonary disease. Reviewed, dictated and finalized at location A.
--- NOTE | ~2023-09-10 | CT_ITS ---
EXAMINATION: CT brain wo con DATE: 09/10/2023 23:10 INDICATION: Syncopal episode and fall TECHNIQUE: Computed tomography (CT) of the head was performed without intravenous contrast. Sagittal and coronal reconstructions were performed. The mA was adjusted according to patient size. Iterative reconstruction technique was employed. The dose-length product was 605.33 mGy-cm. COMPARISON: head CT dated 08/23/2023 FINDINGS: No fracture. No acute intracranial hemorrhage, acute infarction or abnormal extra axial fluid collect ion. There is mild scattered white matter hypoattenuation consistent with chronic small vessel ischem ic disease. Ventricles are normal and symmetric. No mass/mass effect. The orbits, paranasal sinuses and mastoid air cells are normal. IMPRESSION: 1. No fracture or acute intracranial process. Reviewed, dictated and finalized at location A.
--- NOTE | ~2023-09-10 | US_ITS ---
EXAMINATION: US venous doppler [facility] DATE: 09/11/2023 18:16 INDICATION: Lower limb pain. Elevated d-dimer. TECHNIQUE: Grayscale ultrasound images without and with compression and Doppler ultrasound images of the bilateral lower extremity veins were obtained. COMPARISON: None. FINDINGS: The visualized portions of right common femoral vein, profunda (deep) femoral vein, femoral vein, pop liteal vein, posterior tibial veins, peroneal veins and greater saphenous vein outflow are patent. The visualized portions of left common femoral vein, profunda femoral vein, femoral vein, popliteal v ein, posterior tibial veins, peroneal veins and greater saphenous vein outflow are patent. IMPRESSION: 1. No deep venous thrombosis in either lower limb. Reviewed, dictated and finalized at location A.
--- NOTE | ~2023-09-10 | CT_ITS ---
EXAMINATION: CT thoracic lumbar wo con DATE: 09/10/2023 23:11 INDICATION: Fall post syncopal episode TECHNIQUE: Computed tomography (CT) of the thoracic and lumbar spine was performed without intravenou s contrast. Automated exposure control and iterative reconstruction technique were employed. The dose -length product was 295.26 mGy-cm. COMPARISON: Chest CT dated 09/03/2023 FINDINGS: Thoracic spine: 20 degrees thoracic dextroscoliosis. There is also moderate thoracic kyphosis. Chronic mild anterior wedging at T6 and T7. New acute T10, first fracture with 20% anterior vertebral body height loss. The horizontal subarticular sclerotic fracture line extends posteriorly to the posterior wall but withou t evident retropulsion. No other acute fractures identified. There is multilevel moderate disc height loss throughout the majority the thoracic spine. Multilevel mild thoracic facet osteoarthritis. No c entral canal or neural foraminal stenosis. There are small bilateral posterior layering pleural effus ions and minimal dependent atelectasis in bilateral lower lobes. Visualized portions of the mediastin um are unremarkable. Lumbar spine: A degree lumbar levocurvature. Sagittal alignment is normal. Vertebral body heights are normal. No fr acture. Severe disc height loss at L3-L4, L4-L5 and L5-S1, each with disc bulges resulting in mild ce ntral canal stenosis. There is also mild disc height loss and disc bulges resulting in mild central c anal stenosis at L2-L3. There is mild upper thoracic and moderate lower thoracic facet osteoarthritis . There is moderate neural foraminal stenosis on the right at L3-L4 through L5-S1 and mild neural fro m stenosis on the left at L3-L4 through L5-S1 as well as at L2-L3. There are few right renal cysts me asuring up to 2.2 cm. Calcified gallstone at the fundus of the gallbladder. Partially visualized 2.5 cm nodular soft tissue density in the subcutaneous fat at the left buttock potentially related to sub cutaneous injection given the multiple adjacent small heterotopic ossicles. IMPRESSION: 1. Acute T10 burst fracture with 20% anterior vertebral body height loss. 2. 20 degrees thoracic dextro scoliosis with moderate spondylosis and mild lumbar levocurvature with severe spondylosis. 3. Cholelithiasis. 4. 2.5 cm nodular soft tissue density the subcutaneous fat at the left buttock which could be related to subcutaneous injection or hematoma related to trauma. 5. Very small bilateral pleural effusions. Reviewed, dictated and finalized at location A. IMPRESSION: 1. Acute T10 burst fracture with 20% anterior vertebral body height loss. 2. 20 degrees thoracic dextro scoliosis with moderate spondylosis and mild lumb ar levocurvature with severe spondylosis. 3. Cholelithiasis. 4. 2.5 cm nodular soft tissue density the subcutaneous fat at the left buttock which could be related to subcutaneous injection or hematoma related to trauma. 5. Very small bilateral pleural effusions.
--- NOTE | ~2023-09-10 | US_ITS ---
EXAMINATION: US thyroid DATE: 09/11/2023 18:16 INDICATION: 2.2 cm thyroid nodule TECHNIQUE: Multiple ultrasound images of the thyroid were obtained. COMPARISON: None. FINDINGS: The right thyroid lobe measures 3.9 x 1.5 x 1.5 cm. The left thyroid lobe measures 4.3 x 1.8 x 1.7 c m. Thyroid isthmus measures 2 mm in thickness. There are couple solid wider than tall hypoechoic nodu les with smooth margins and without echogenic foci (TI-RADS 4, moderately suspicious , FNA if >=1.5 c m, annual followup is >=1 cm) measuring 1.3 cm in the mid left thyroid lobe and 1.4 cm the inferior l eft thyroid lobe. IMPRESSION: 1. A couple 1.3 cm and 1.4 cm TI RADS 4 left thyroid nodules. Recommend annual ultrasound follow-up. Reviewed, dictated and finalized at location A.
--- NOTE | ~2023-09-10 | CT_ITS ---
Clinical Indication: Syncope, elevated d-dimer CT Scan of the Chest, Abdomen, and Pelvis with Contrast: Technique: Contiguous sections were acquired throughout the chest, abdomen, and pelvis after intraven ous administration of 100 cc of Omnipaque 350. Dose reduction technique was used on this scan by christopher rausch automated exposure control and iterative reconstruction technique. The dose-length product (DL P) was 405.30 mGy-cm. COMPARISON: 09/03/2023 Findings: There is no evidence of any significant mediastinal, hilar or axillary lymphadenopathy. The mediastin al soft tissues appear normal. No pulmonary embolus seen. No aortic aneurysm or dissection. There is no evidence of pleural or pericardial effusion. The lungs are clear. No pulmonary nodules or infiltrates are noted. The liver, spleen, pancreas, adrenals and left kidney are within normal limits. Calcified gallstone p resent. Right kidney demonstrates multiple small cysts, and probable areas of cortical scarring. Ther e are atherosclerotic calcifications of the aorta. No lymphadenopathy. No bowel obstruction or bowel wall thickening. There is no evidence to suggest acute appendicitis. Possible mild urinary bladder wall thickening with small bubbles of air in the urinary bladder. No pe lvic mass seen. No ascites. Impression: Questionable cystitis. Correlate with urinalysis. Tiny bubbles of air in urinary bladder may be iatro genic. Cholelithiasis. Reviewed, dictated and finalized at [facility] [place]. Impression: Questionable cystitis. Correlate with urinalysis. Tiny bubbles of air in urinar y bladder may be iatrogenic. Cholelithiasis.
--- NOTE | ~2023-09-10 | XR_ITS ---
EXAMINATION: XR barium swallow modified DATE: 09/12/2023 11:25 INDICATION: Dysphagia. TECHNIQUE: The patient was given barium-containing material of multiple consistencies to swallow by t he speech pathologist while I performed fluoroscopy. Fluoroscopy exposure time was 2.1 minutes. The n umber of fluoroscopy images saved to the PACS was 1. Dose-area product was 1.311 Gy-cm^2. FINDINGS: There is reduced laryngeal elevation, reduced laryngeal adduction, reduced tongue base retraction, an d reduced pharyngeal squeeze. There is laryngeal penetration with thin liquids. IMPRESSION: 1. Laryngeal penetration with thin liquids. 2. Please refer to the speech therapy report for recommendations. Reviewed, dictated and finalized at location A.
--- NOTE | ~2023-09-10 | CT_ITS ---
EXAMINATION: CT cervical spine wo con DATE: 09/10/2023 23:10 INDICATION: Fall post syncopal episode. TECHNIQUE: Computed tomography (CT) of the cervical spine was performed without intravenous contrast. Automated exposure control and iterative reconstruction technique were employed. The dose-length pro duct was 105.05 mGy-cm. COMPARISON: None FINDINGS: 9 degrees cervical levocurvature. Sagittal alignment is normal. Vertebral body heights are normal. No fracture. Mild disc height loss with moderate bilateral uncovertebral osteoarthritis at C5-C6. Poste rior endplate osteophytes result in mild central canal stenosis at this level. Moderate multilevel bi lateral cervical facet osteoarthritis. Mild neural from stenosis bilaterally at C5-C6. A couple left thyroid nodules the largest measuring 2.2 cm. Cervical soft tissues are otherwise unremarkable. Visua lized apices of the lungs are clear. IMPRESSION: 1. Mild lower cervical spondylosis. No acute osseous abnormality. 2. 2.2 cm left thyroid nodule. Recommend follow-up thyroid ultrasound for risk stratification. Reviewed, dictated and finalized at location A.
[2023-09-10 21:59] VITALS: BP 81/62; PULSE 72; RESP 20; TEMP 36.8; O2SAT 97
--- NOTE | 2023-09-10 22:05 | ECG_ITS ---
Test Date: 2023-09-10 22:07:39 Measurements Intervals [place] Rate: 62 P: 47 AL: 162 QRS: 27 QRSD: 86 T: 35 QT: 424 QTc: 433 Interpretive Statements SINUS RHYTHM NONSPECIFIC T-WAVE ABNORMALITY WITH PROMINENT U WAVE BORDERLINE ECG Compared to ECG 09/03/2023 18:47:28 HEART RATE IS REDUCED Electronically Signed On 09-12-2023 10:45:13 CDT by Clark Pa M.D.
[2023-09-10 22:21] LABS: Basophils Absolute Auto 0.1 K/mm3 (0.0-0.1); Basophils Percent Auto 0.7 % (0.2-1.2); Eosinophils Absolute Auto 0.1 K/mm3 (0-0.3); Eosinophils Percent Auto 1.1 % (0-4.4); Hematocrit 32.9 % (37.0-47.0); Hemoglobin 10.9 g/dL (12.0-15.0); Immature Granulocyte Absolute 0.06 K/mm3 (0.00-0.031); Immature Granulocyte Percent A 0.7 % (0-0.5); Lymphocytes Absolute Auto 2.05 K/mm3 (0.9-3.2); Lymphocytes Percent Auto 23.5 % (18.3-44.2); Mean Corpuscular HGB Conc 33.1 g/dl (32-36); Mean Corpuscular Hemoglobin 33.5 pg (26-34); Mean Corpuscular Volume 101.2 fl (80-100); Mean Platelet Volume 9.7 fl (7.4-10.4); Monocytes Absolute Auto 0.7 K/mm3 (0.1-0.6); Monocytes Percent Auto 7.9 % (2.6-8.5); Neutrophils Absolute Auto 5.8 K/mm3 (1.3-6.7); Neutrophils Percent Auto 66.1 % (45.5-73.1); Platelet Count Result 195 k/mm3 (150-375); Red Blood Count 3.25 M/mm3 (4.2-5.4); Red Cell Distribution Width 14.3 % (11.5-14.5); White Blood Count 8.7 K/mm3 (4.5-10.0)
[2023-09-10 22:33] LABS: Alanine Aminotransferase 15 U/L (6-35); Albumin Level 2.9 g/dL (3.5-5.1); Alkaline Phosphatase 40 U/L (38-126); Anion Gap 5 mmol/L (4-12); Aspartate Amino Transferase 18 U/L (14-36); Bilirubin,Total 0.3 mg/dL (0.2-1.3); Blood Urea Nitrogen 6 mg/dL (7-17); Calcium 8.9 mg/dL (8.4-10.2); Carbon Dioxide 28 mmol/L (22-30); Chloride 105 mmol/L (98-107); Estimated CRCL calculation 67 ml/min; Estimated Glomerular Filt Rate > 60; Glucose 120 mg/dL (65-110); Potassium 3.2 mmol/L (3.4-5.0); Sodium 138 mmol/L (137-145)
--- NOTE | 2023-09-10 22:33 | ED.SYNCOPE ---
HPI - Syncope General Chief Complaint: Syncope Stated Complaint: SYNCOPE, HEAD LAC, BACK PAIN Time Seen by Provider: 09/10/23 22:09 Source: patient Limitations: no limitations History of Present Illness HPI narrative: Patient is a 63-year-old female presents to the emergency department complaining of passing out. Patient notes that she was at home when she got up to go to the kitchen to grade 2 in [place] when she felt lightheaded and then proceeded to pass out. Patient denies history of passing out. Patient denies history of abnormal heart rhythms. Patient denies use of blood thinners. Patient denies history of blood clots. Patient denies chest pain, difficulty breathing, abdominal pain, nausea, vomiting, diarrhea, melena, hematochezia, urinary discomfort, urinary incontinence, stool incontinence, history of IV drug use, history of cancer, weight loss, recent illness, fever, headache, confusion, numbness, weakness, rash, new or change medications. Patient admits to being dehydrated. Patient does not know her last tetanus shot was. Patient admits to hitting back of her head where she has a cut now and she is also having pain to her lower back and does not radiate. Patient denies history of heart disease or abnormal heart rhythms. Related Data Home Medications Medication Instructions Recorded Confirmed albuterol sulfate 90 mcg/actuation 2 puff inhalation TID PRN 07/26/21 08/23/23 aerosol inhaler shortness of breath or wheezing budesonide-formoterol HFA 160 2 puff inhalation Q12H 07/26/21 08/23/23 mcg-4.5 mcg/actuation aerosol inhaler (Symbicort) docusate sodium 100 mg capsule 100 mg PO BID 07/26/21 08/23/23 fluticasone propionate 50 1 spray intranasal BID 07/26/21 08/23/23 mcg/actuation nasal spray,suspension (Allergy Relief (fluticasone)) loratadine 10 mg tablet 10 mg PO DAILY 07/26/21 08/23/23 multivitamin 1 tablet PO DAILY 07/26/21 08/23/23 prazosin 1 mg capsule 1 mg PO HS 07/26/21 08/23/23 simvastatin 40 mg tablet 40 mg PO DAILY 07/26/21 08/23/23 trihexyphenidyl 2 mg tablet 2 mg PO QHS 07/26/21 08/23/23 calcium carbonate 600 mg-vitamin 2 tablet PO DAILY 08/23/23 08/23/23 D3 10 mcg (400 unit) tablet (Calcium with Vitamin D) citalopram 10 mg tablet 10 mg PO DAILY 08/23/23 08/23/23 famotidine 20 mg tablet (Pepcid) 20 mg PO DAILY 08/23/23 08/23/23 fluticasone 113 mcg-salmeterol 14 1 inh inhalation BID 08/23/23 08/23/23 mcg/actuation 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AirDuo RespiClick) lorazepam 0.5 mg tablet 0.5 mg PO HS 08/23/23 08/23/23 melatonin 10 mg tablet 10 mg PO HS PRN Insomnia 08/23/23 08/23/23 meloxicam 15 mg tablet 15 mg PO DAILY 08/23/23 08/23/23 paliperidone palm (6 month) 1,560 1,560 mg IM [id number] 08/23/23 08/23/23 mg/5 mL intramuscular syringe (Invega [facility]) trazodone 100 mg tablet 200 mg PO HS PRN Insomnia 08/23/23 08/23/23 valbenazine 80 mg capsule 80 mg PO HS 08/23/23 08/23/23 (Ingrezza) Allergies Allergy/AdvReac Type Severity Reaction Status Date / Time diazepam Allergy Unknown Throat Verified 09/03/23 19:07 Swelling imipramine Allergy Unknown Seizure Verified 09/03/23 19:07 risperidone Allergy Unknown Throat Verified 09/03/23 19:07 Swelling WOOL AdvReac Unknown Other Uncoded 09/03/23 19:07 Review of Systems Review of Systems: A 10 system review of systems was completed on the patient and is negative except for what is stated in the HPI. Nursing and ancillary documentation was reviewed. [facility] Past Medical History Medical History Anxiety Asthma Depression Gastroesophageal reflux disease Hyperlipidemia Osteoarthritis Schizophrenia Surgical History Surgical History History of open reduction and internal fixation (ORIF) procedure Repair right ankle fracture per Dr. Lopez. Family History Family History (Reviewed 09/03/23 @ 22:19 by Corazon
[2023-09-10 23:05] LABS: Ethanol < 10 mg/dL (<10)
[2023-09-10 23:06] LABS: Lipase 99 U/L (23-300); Magnesium 1.6 mg/dL (1.6-2.3)
[2023-09-10 23:18] LABS: Partial Thromboplastin Time 26.5 Seconds (22.3-36.8); Prothrombin Time 13.5 Seconds (11.1-14.7); Troponin I < 0.012 ng/mL (0.000-0.034)
[2023-09-10] MEDS: SODIUM CHLORIDE 0.9% IV 1,000 ML 999 ML IV CONT (23:26)
[2023-09-10] MEDS: TETANUS,DIPHTHERIA,AC PERTUSSIS ADULT (0.5 ML) BOOSTRIX IM (23:27)
[2023-09-10] MEDS: ACETAMINOPHEN 500 MG TABLET 1000 MG PO (23:36)
[2023-09-10] MEDS: POTASSIUM CHLORIDE 20 MEQ PACKET (FOR LIQUID) 40 MEQ PO (23:36)
[2023-09-10 23:37] LABS: D Dimer 7.41 ug/mL (<0.48)
[2023-09-10 23:38] LABS: Thyroid Stimulating Hormone Reflex 0.965 uIU/mL (0.465-4.68)
[2023-09-10 23:39] VITALS: PULSE 70; RESP 16; O2SAT 99
[2023-09-10 23:40] LABS: Lactic Acid Reflex 1.5 mmol/L (0.7-2.0)
[2023-09-10 23:45] VITALS: PULSE 61; RESP 13; O2SAT 97
[2023-09-11 00:09] LABS: Influenza A QL RT-PCR Negative (Negative); Influenza B QL RT-PCR Negative (Negative); RSV RNA, RT-PCR Negative (Negative); SARS-CoV-2 RNA PCR Negative (Negative)
[2023-09-11 00:15] VITALS: BP 114/64; PULSE 67; RESP 18; O2SAT 100
[2023-09-11 00:29] LABS: Add Urine Microscopic? YES; Appearance Urine Clear (Clear); Bacteria Urine Rare /hpf; Bilirubin Urine Negative (Negative); Blood Urine Negative (Negative); Color Urine Yellow (Yellow); Glucose Urine UA Negative (Negative); Ketones Urine Negative (Negative); Leukocyte Esterase Ur 1+ LEU/UL (Negative); Nitrate Urine Negative (Negative); Protein Urine Negative (Negative); RBC Urine 0-2 /hpf (0-2); Squamous Epithelial Cell Urine Occasional /hpf (Few); Urobilinogen Urine 0.2 mg/dL (<2.0); pH Urine 6.5 (5.0-9.0)
[2023-09-11 00:34] LABS: Creatine Kinase 28 U/L (30-135)
[2023-09-11] MEDS: HYDROcodone/acetaminophen (*CRX) 5-325 MG TABLET 1 TAB PO ×6 (00:41→20:12)
[2023-09-11 00:52] LABS: Amphetamine Screen Urine Negative (Negative); Barbiturate Screen Urine Negative (Negative); Benzodiazepines Screen Urine Negative (Negative); Cannabinoid Screen Urine Positive (Negative); Cocaine Screen Urine Negative (Negative); Methadone Screen Urine Negative (Negative); Opiate Screen Urine Negative (Negative); Phencyclidine Screen Urine Negative (Negative)
--- NOTE | 2023-09-11 02:49 | ADMGEN ---
This patient, Akanksha Ramires, was admitted to Medical Room 247-. Patient/family oriented to hospital policies and general routines including ID bracelet, bed and alarms, visiting hours, pain management, procedures, bathroom and other care routines, personal items, smoking policy, room service/diet, and visiting hours. Information on how to activate the Rapid Response Team has been discussed. Patient/Family are encouraged to report perceived risks to care and to ask questions if they do not understand what they are told or what they should do.
[2023-09-11 03:27] VITALS: BP 149/80; PULSE 66; RESP 16; TEMP 36.6; O2SAT 95
[2023-09-11 03:28] VITALS: BMI 18.5
[2023-09-11 04:06] LABS: SPREG INTERNAL CONTROL Positive; Serum Qual hCG Positive
[2023-09-11 05:17] LABS: Beta HCG Quantitative < 2.39 mIU/ML
[2023-09-11 07:53] LABS: Hematocrit 35.3 % (37.0-47.0); Hemoglobin 11.5 g/dL (12.0-15.0); Mean Corpuscular HGB Conc 32.6 g/dl (32-36); Mean Corpuscular Hemoglobin 33.3 pg (26-34); Mean Corpuscular Volume 102.3 fl (80-100); Mean Platelet Volume 10.7 fl (7.4-10.4); Platelet Count Result 223 k/mm3 (150-375); Red Blood Count 3.45 M/mm3 (4.2-5.4); Red Cell Distribution Width 14.6 % (11.5-14.5); White Blood Count 11.1 K/mm3 (4.5-10.0)
[2023-09-11 08:11] LABS: Alanine Aminotransferase 17 U/L (6-35); Albumin Level 3.1 g/dL (3.5-5.1); Alkaline Phosphatase 47 U/L (38-126); Anion Gap 5 mmol/L (4-12); Aspartate Amino Transferase 38 U/L (14-36); Bilirubin,Total 0.3 mg/dL (0.2-1.3); Blood Urea Nitrogen 5 mg/dL (7-17); Calcium 8.9 mg/dL (8.4-10.2); Carbon Dioxide 26 mmol/L (22-30); Chloride 107 mmol/L (98-107); Estimated CRCL calculation 65 ml/min; Estimated Glomerular Filt Rate > 60; Glucose 84 mg/dL (65-110); Potassium 4.3 mmol/L (3.4-5.0); Sodium 138 mmol/L (137-145)
[2023-09-11] MEDS: SODIUM CHLORIDE 0.9% IV 1,000 ML 100 ML IV CONT ×2 (08:48→20:29)
[2023-09-11] MEDS: PRAZOSIN HCL 1 MG CAPSULE PO (08:49)
[2023-09-11] MEDS: DOCUSATE SODIUM 100 MG CAPSULE PO ×2 (08:49→18:46)
[2023-09-11] MEDS: PANTOPRAZOLE 40 MG TABLET PO (08:49)
[2023-09-11] MEDS: LORATADINE 10 MG TABLET PO (08:49)
[2023-09-11] MEDS: SIMVASTATIN 20 MG TABLET 40 MG PO (08:49)
[2023-09-11] MEDS: MULTIVITAMINS THERAPEUTIC TAB (*BKC) 1 TABLET PO (08:49)
[2023-09-11] MEDS: CITALOPRAM HYDROBROMIDE 20 MG TABLET PO (08:49)
[2023-09-11] MEDS: CALCIUM/VITAMIN D 500 MG/5 MCG (200 I.U.) TABLET 1000 MG PO (08:50)
[2023-09-11] MEDS: ENOXAPARIN 40 MG/0.4 ML SYRINGE SUB-Q (08:50)
[2023-09-11 10:47] VITALS: PULSE 65; RESP 18; O2SAT 96
[2023-09-11] MEDS: FLUTICASONE/SALMETEROL 115-21 MCG INHALER 1 PUFF 2 PUFF INHALATION ×2 (10:47→20:52)
[2023-09-11 13:43] VITALS: BMI 18.5
[2023-09-11 14:00] VITALS: BP 142/74; PULSE 62; RESP 17; TEMP 36.5; O2SAT 95
--- NOTE | 2023-09-11 14:29 | PM.IMHP ---
H&P: HPI History of Present Illness Date/Time: 09/11/23 14:29 Chief Complaint: Syncope/fall Narrative: Patient is a 63-year-old female who presented to the emergency department from [facility] after complaints of syncopal episode. Patient is a poor historian and unable to provide history most information is from the medical chart. Patient states she did not remember passing out just that she was standing in the kitchen and fell over hitting her head. Patient at time of assessment denied any chest pain, shortness a breath, nausea, vomiting, dizziness, blurred vision fever or chills. Did report some back pain. Patient did hit her head with laceration that was repaired in the emergency department. Patient does have a past medical history of schizophrenia, anxiety, asthma, depression, GERD, HLD, and osteoarthritis. CXR with no acute cardiopulmonary disease, CTA was negative for PE but did show possible cystitis, and CT spine showed an acute T10 burst fracture. Initial labs were unremarkable other than possible positive UA, Hgb 10.9 and elevated D-dimer 7.41, however patient was hypotensive upon arrival but responded to fluid resuscitation. Patient HCG qual positive, Beta <2.39 will repeat today. Patient was admitted to the medical unit pain control, TLSO brace and PT OT evaluation possible rehab placement. Review of Systems Review of Systems: All systems reviewed & are unremarkable except as noted in HPI and below PMFSH Past Medical History Medical History Anxiety Asthma Depression Gastroesophageal reflux disease Hyperlipidemia Osteoarthritis Schizophrenia Surgical History Surgical History History of open reduction and internal fixation (ORIF) procedure Repair right ankle fracture per Dr. Lopez. Family History Family History Other Arthritis Asthma Depression Social History Social History Social History: Surrogate medical decision maker: Barbara Ramires (daughter) or Ephraim Luong (significant other). Code status: Full code. Smoking packs per day: 1 Smoking cigarettes per day: 20.0 Years smoked: 40 Smoking pack-years: 40.00 Smoking status: Current every day smoker Tobacco type: cigarettes Alcohol intake: former Substance use: former Substance use type: marijuana Other substance usage details: PT DENIES DRUG USE LABS AND PT HISTORY STATE OTHERWISE Last use: years ago Do You Feel Safe in your Home?: Yes Lack of Transportation: YES Lack of Food: Never True Current Housing: I Have Housing Concerned About Future Housing: No Difficulty Paying Gas/Electric Bills: No Difficulty Paying for Meds: No Currently Unemployed: No Education: High School Diploma/GED Difficulty w/ Childcare or Family Care: No Additional living arrangements comments: Currently living at [facility]. Additional occupation/education comments: Disabled. Spiritual care concerns: No Meds Home Medications and Allergies Home Medications Medication Instructions Recorded Confirmed Type albuterol sulfate 90 mcg/actuation 2 puff inhalation TID PRN 07/26/21 09/11/23 History aerosol inhaler shortness of breath or wheezing budesonide-formoterol HFA 160 2 puff inhalation Q12H 07/26/21 09/11/23 History mcg-4.5 mcg/actuation aerosol inhaler (Symbicort) docusate sodium 100 mg capsule 100 mg PO BID 07/26/21 09/11/23 History fluticasone propionate 50 1 spray intranasal BID 07/26/21 09/11/23 History mcg/actuation nasal spray,suspension (Allergy Relief (fluticasone)) loratadine 10 mg tablet 10 mg PO DAILY 07/26/21 09/11/23 History multivitamin 1 tablet PO DAILY 07/26/21 09/11/23 History prazosin 1 mg capsule 1 mg
[2023-09-11 15:21] LABS: Beta HCG Quantitative < 2.39 mIU/ML
[2023-09-11 16:16] LABS: SPREG INTERNAL CONTROL Positive; Serum Qual hCG Negative
[2023-09-11 20:00] VITALS: BP 129/91; BP 136/85; BP 142/75; PULSE 77; PULSE 85; PULSE 93; RESP 20; TEMP 36.5; O2SAT 97; O2SAT 98
[2023-09-11] MEDS: PRAZOSIN HCL 1 MG CAPSULE 2 MG PO (20:09)
[2023-09-11] MEDS: TRIHEXYPHENIDYL HCL 2 MG TABLET PO (20:09)
[2023-09-11] MEDS: LORazepam (*CRX) 0.5 MG TABLET PO (20:09)
[2023-09-11 20:52] VITALS: O2SAT 98
--- NOTE | 2023-09-12 01:07 | PC.NURSE ---
On 09/11/23 & 09/12/23, Sarahy Lora RN completing orientation, provided care and completed [employer] documentation on this patient. I have reviewed Sarahy's documentation and agree with the findings.
[2023-09-12] MEDS: HYDROcodone/acetaminophen (*CRX) 5-325 MG TABLET 1 TAB PO ×4 (02:45→17:04)
[2023-09-12 04:43] LABS: Hematocrit 33.6 % (37.0-47.0); Hemoglobin 10.8 g/dL (12.0-15.0); Mean Corpuscular HGB Conc 32.1 g/dl (32-36); Mean Corpuscular Hemoglobin 33.1 pg (26-34); Mean Corpuscular Volume 103.1 fl (80-100); Mean Platelet Volume 10.6 fl (7.4-10.4); Platelet Count Result 188 k/mm3 (150-375); Red Blood Count 3.26 M/mm3 (4.2-5.4); Red Cell Distribution Width 14.5 % (11.5-14.5); White Blood Count 7.3 K/mm3 (4.5-10.0)
[2023-09-12 04:59] LABS: Alanine Aminotransferase 13 U/L (6-35); Albumin Level 2.7 g/dL (3.5-5.1); Alkaline Phosphatase 45 U/L (38-126); Anion Gap 3 mmol/L (4-12); Aspartate Amino Transferase 13 U/L (14-36); Bilirubin,Total 0.4 mg/dL (0.2-1.3); Blood Urea Nitrogen 11 mg/dL (7-17); Calcium 8.6 mg/dL (8.4-10.2); Carbon Dioxide 26 mmol/L (22-30); Chloride 106 mmol/L (98-107); Estimated CRCL calculation 75 ml/min; Estimated Glomerular Filt Rate > 60; Glucose 77 mg/dL (65-110); Potassium 4.2 mmol/L (3.4-5.0); Sodium 135 mmol/L (137-145)
[2023-09-12 05:23] VITALS: BP 107/53; PULSE 63; RESP 18; TEMP 36.6; O2SAT 96
[2023-09-12] MEDS: SODIUM CHLORIDE 0.9% IV 1,000 ML 100 ML IV CONT (06:14)
[2023-09-12 07:10] VITALS: PULSE 81; RESP 18; O2SAT 94
[2023-09-12] MEDS: FLUTICASONE/SALMETEROL 115-21 MCG INHALER 1 PUFF 2 PUFF INHALATION (07:10)
--- NOTE | 2023-09-12 07:16 | P.PNIM_ITS ---
Progress Note: A&P Assessment and Plan (1) Syncope: Qualifiers: Syncope type: unspecified Qualified Code(s): R55 - Syncope and collapse Code(s): R55 - Syncope and collapse Status: Acute (2) Laceration of scalp: Qualifiers: Encounter type: initial encounter Qualified Code(s): S01.01XA - Laceration without foreign body of scalp, initial encounter Code(s): S01.01XA - Laceration without foreign body of scalp, initial encounter Status: Acute (3) Burst fracture of thoracic vertebra: Qualifiers: Encounter type: initial encounter Fracture type: closed Qualified Code(s): S22.001A - Stable burst fracture of unspecified thoracic vertebra, initial encounter for closed fracture Code(s): S22.001A - Stable burst fracture of unspecified thoracic vertebra, initial encounter for closed fracture Status: Acute (4) UTI (urinary tract infection): Qualifiers: Hematuria presence: without hematuria Urinary tract infection type: site unspecified Qualified Code(s): N39.0 - Urinary tract infection, site not specified Code(s): N39.0 - Urinary tract infection, site not specified Status: Acute (5) Thyroid nodule: Code(s): E04.1 - Nontoxic single thyroid nodule Status: Acute (6) Anemia: Qualifiers: Anemia type: unspecified type Qualified Code(s): D64.9 - Anemia, unspecified Code(s): D64.9 - Anemia, unspecified Status: Acute (7) Psychiatric illness: Code(s): F99 - Mental disorder, not otherwise specified Status: Acute (8) Asthma: Code(s): J45.909 - Unspecified asthma, uncomplicated Status: Acute (9) Malnutrition: Code(s): E46 - Unspecified protein-calorie malnutrition Status: Acute Plan Syncope/Fall * Hypotensive POA * secondary to dehydration * Respond to IV fluids * Orthostatic negative * DDIMER elevated 7.41 CTA negative for PE/BLE dopplers negative * PT/OT * COVID/Influenza/RSV negtaive * positive for marijuana * Positive hCG repeating today follow-up negative T10 acute Burst fracture * Neurology spoken to in ED TLSO brace/follow-up 2 weeks * TLSO ordered * PT/OT * Pain control UTI * Leukocytes + * Rocephin IV pending cultures Anemia * chronic * Hgb stable * continue to monitor * Transfuse PRBC if Hgb <7.0 Thyroid nodule * TSH WNL * will need ultrasound for further evaluation * multiple stable nodules * Annual follow-up US recommended Schizophrenia * Resume home medication * Lives at [facility] * Stable Moderate malnutrition due to poor caloric and protein intake * Consult city letter carrier * protein shake with each meal * HX aspiration * MBS pending for evaluation is currently on a puree diet Code status: Full code per patient DVT prophylaxis: Lovenox Stress ulcer prophylaxis: Protonix 40 daily PT/OT notes: PT/OT pending with TLSO brace Disposition: Patient continues admission to the medical unit for evaluation and treatment syncope with acute T10 burst fracture, TLSO brace ordered and pending PT/OT. Patient will likely need rehab services prior to [facility]. Time Spent With Patient Time with patient: 15 - 25 minutes Subjective Date/time seen: 09/12/23 07:16 Interval history: Admission: Patient is a 63-year-old female who presented to the emergency departmen
--- NOTE | 2023-09-12 07:16 | PM.IMPN ---
Progress Note: A&P Assessment and Plan (1) Syncope: Qualifiers: Syncope type: unspecified Qualified Code(s): R55 - Syncope and collapse Code(s): R55 - Syncope and collapse Status: Acute (2) Laceration of scalp: Qualifiers: Encounter type: initial encounter Qualified Code(s): S01.01XA - Laceration without foreign body of scalp, initial encounter Code(s): S01.01XA - Laceration without foreign body of scalp, initial encounter Status: Acute (3) Burst fracture of thoracic vertebra: Qualifiers: Encounter type: initial encounter Fracture type: closed Qualified Code(s): S22.001A - Stable burst fracture of unspecified thoracic vertebra, initial encounter for closed fracture Code(s): S22.001A - Stable burst fracture of unspecified thoracic vertebra, initial encounter for closed fracture Status: Acute (4) UTI (urinary tract infection): Qualifiers: Hematuria presence: without hematuria Urinary tract infection type: site unspecified Qualified Code(s): N39.0 - Urinary tract infection, site not specified Code(s): N39.0 - Urinary tract infection, site not specified Status: Acute (5) Thyroid nodule: Code(s): E04.1 - Nontoxic single thyroid nodule Status: Acute (6) Anemia: Qualifiers: Anemia type: unspecified type Qualified Code(s): D64.9 - Anemia, unspecified Code(s): D64.9 - Anemia, unspecified Status: Acute (7) Psychiatric illness: Code(s): F99 - Mental disorder, not otherwise specified Status: Acute (8) Asthma: Code(s): J45.909 - Unspecified asthma, uncomplicated Status: Acute (9) Malnutrition: Code(s): E46 - Unspecified protein-calorie malnutrition Status: Acute Plan Syncope/Fall Hypotensive POA secondary to dehydration Respond to IV fluids Orthostatic negative DDIMER elevated 7.41 CTA negative for PE/BLE dopplers negative PT/OT COVID/Influenza/RSV negtaive positive for marijuana Positive hCG repeating today follow-up negative T10 acute Burst fracture Neurology spoken to in ED TLSO brace/follow-up 2 weeks TLSO ordered PT/OT Pain control UTI Leukocytes + Rocephin IV pending cultures Anemia chronic Hgb stable continue to monitor Transfuse PRBC if Hgb <7.0 Thyroid nodule TSH WNL will need ultrasound for further evaluation multiple stable nodules Annual follow-up US recommended Schizophrenia Resume home medication Lives at [facility] Stable Moderate malnutrition due to poor caloric and protein intake Consult certified physician's assistant protein shake with each meal HX aspiration MBS pending for evaluation is currently on a puree diet Code status: Full code per patient DVT prophylaxis: Lovenox Stress ulcer prophylaxis: Protonix 40 daily PT/OT notes: PT/OT pending with TLSO brace Disposition: Patient continues admission to the medical unit for evaluation and treatment syncope with acute T10 burst fracture, TLSO brace ordered and pending PT/OT. Patient will likely need rehab services prior to returning to [facility]. Time Spent With Patient Time with patient: 15 - 25 minutes Subjective Date/time seen: 09/12/23 07:16 Interval history: Admission: Patient is a 63-year-old female who presented to the emergency department from [facility] after complaints of syncopal episode. Patient is a poor historian and unable to provide history most information is from the medical chart. Patient states she did not remember passing out just that she was standing in the kitchen and fell over hitting her head. Patient at time of assessment denied any chest pain, shortness a breath, nausea, vomiting, dizziness, blurred vision fever or chills. Did report some back pain. Patient did hit her head with laceration that was repaired in the emergency department. Stewart
[2023-09-12] MEDS: SIMVASTATIN 20 MG TABLET 40 MG PO (09:03)
[2023-09-12] MEDS: PRAZOSIN HCL 1 MG CAPSULE PO (09:03)
[2023-09-12] MEDS: CALCIUM/VITAMIN D 500 MG/5 MCG (200 I.U.) TABLET 1000 MG PO (09:03)
[2023-09-12] MEDS: DOCUSATE SODIUM 100 MG CAPSULE PO ×2 (09:03→17:04)
[2023-09-12] MEDS: CITALOPRAM HYDROBROMIDE 20 MG TABLET PO (09:03)
[2023-09-12] MEDS: MULTIVITAMINS THERAPEUTIC TAB (*BKC) 1 TABLET PO (09:03)
[2023-09-12] MEDS: LORATADINE 10 MG TABLET PO (09:03)
[2023-09-12] MEDS: PANTOPRAZOLE 40 MG TABLET PO (09:03)
[2023-09-12] MEDS: ENOXAPARIN 40 MG/0.4 ML SYRINGE SUB-Q (09:08)
--- NOTE | 2023-09-12 13:09 | PCSTNOTE ---
Please refer to the Modified Barium Swallow Evaluation in the EMR. This 63-year-old female patient completed a modified barium swallow study history of aspiration and current diet of Level 3 Mod. Thick Liquids and Level 4 Puree Food. Patient was admitted on 09/10/23 due to syncope (fainting), UTI, and previous history of aspiration. She reported her diet changes due to difficulty with swallowing. Trials of purees, solids, moderately thick liquids, mildly thick liquids and thin liquids via straw/spoon/cup edge were administered during MBS. During trials of moderately thick liquids via cup edge and straw, pt demonstrated good laryngeal elevation with no instance of penetration or aspiration. During trials of mildly thick liquids via cup edge, good laryngeal elevation and closure was noted with no aspiration or penetration; however, with trials of mildly thick liquid with straws, trace flash penetration was noted with good clearance. During trials of thin liquid via cup edge pt demonstrated flash penetration with ejection during the swallow. Upon consumption of thin liquid via straw pt demonstrated mild penetration with ejection during the swallow. During trials of purees STATE ASSESSED PROPERTIES DIRECTOR noted good laryngeal elevation and closure with no aspiration or penetration. During trials of solid (fruit cocktail & erick cracker) with barium contrast, pt demonstrated no penetration or aspiration; however, STATE ASSESSED PROPERTIES DIRECTOR noted premature spillage from oral cavity, spillage from vallecula into pyriform sinuses, increased oral transit time, and severely delayed swallow increasing her risk for aspiration and penetration. STATE ASSESSED PROPERTIES DIRECTOR recommends diet modification and ST to target aforementioned difficulties. Recommendations: 1. Diet modification: Level 2 (Mildly Thick Liquids) & Level 4 (Pureed Foods) 2. ST: 3-5x/week
[2023-09-12 13:10] VITALS: BP 140/75; PULSE 81
[2023-09-12 13:13] VITALS: BP 138/84; PULSE 89
[2023-09-12 13:15] VITALS: BP 136/82; PULSE 100
--- NOTE | 2023-09-12 14:54 | P.DS_ITS ---
DS: Admitting Diagnosis Discharge Date 09/12/2023 Admitting Diagnosis Syncope/T2 burst fracture/dehydration DS: Discharge Diagnosis Discharge Diagnosis (1) Syncope: Qualifiers: Syncope type: unspecified Qualified Code(s): R55 - Syncope and collapse Code(s): R55 - Syncope and collapse Status: Acute (2) Laceration of scalp: Qualifiers: Encounter type: initial encounter Qualified Code(s): S01.01XA - Laceration without foreign body of scalp, initial encounter Code(s): S01.01XA - Laceration without foreign body of scalp, initial encounter Status: Acute (3) Burst fracture of thoracic vertebra: Qualifiers: Encounter type: initial encounter Fracture type: closed Qualified Code(s): S22.001A - Stable burst fracture of unspecified thoracic vertebra, initial encounter for closed fracture Code(s): S22.001A - Stable burst fracture of unspecified thoracic vertebra, initial encounter for closed fracture Status: Acute (4) UTI (urinary tract infection): Qualifiers: Hematuria presence: without hematuria Urinary tract infection type: site unspecified Qualified Code(s): N39.0 - Urinary tract infection, site not specified Code(s): N39.0 - Urinary tract infection, site not specified Status: Acute (5) Thyroid nodule: Code(s): E04.1 - Nontoxic single thyroid nodule Status: Acute (6) Anemia: Qualifiers: Anemia type: unspecified type Qualified Code(s): D64.9 - Anemia, unspecified Code(s): D64.9 - Anemia, unspecified Status: Acute (7) Psychiatric illness: Code(s): F99 - Mental disorder, not otherwise specified Status: Acute (8) Asthma: Code(s): J45.909 - Unspecified asthma, uncomplicated Status: Acute (9) Malnutrition: Code(s): E46 - Unspecified protein-calorie malnutrition Status: Acute Plan Syncope/Fall * Hypotensive POA * secondary to dehydration * Respond to IV fluids * Orthostatic negative * DDIMER elevated 7.41 CTA negative for PE/BLE dopplers negative * PT/OT * COVID/Influenza/RSV negtaive * positive for marijuana * Positive hCG repeating today follow-up negative T10 acute Burst fracture * Neurology spoken to in ED TLSO brace/follow-up 2 weeks * TLSO ordered * PT/OT * Pain control UTI * Leukocytes + * Rocephin IV pending cultures Anemia * chronic * Hgb stable * continue to monitor * Transfuse PRBC if Hgb <7.0 Thyroid nodule * TSH WNL * will need ultrasound for further evaluation * multiple stable nodules * Annual follow-up US recommended Schizophrenia * Resume home medication * Lives at [facility] * Stable Moderate malnutrition due to poor caloric and protein intake * Consult instrument room technician * protein shake with each meal * HX aspiration * MBS pending for evaluation is currently on a puree diet Code status: Full code per patient DVT prophylaxis: Lovenox Stress ulcer prophylaxis: Protonix 40 daily PT/OT notes: PT/OT pending with TLSO brace Disposition: Discharged to [facility] DS: Summary Hospital Course Reason for hospitalization: Syncope/T2 burst fracture/dehydration Hospital Course: Admission: Patient is a 63-year-old female who presented to the emergency department from [facility] after complaints of syncopal episode.
--- NOTE | 2023-09-12 14:54 | PM.DS ---
DS: Admitting Diagnosis Discharge Date 09/12/2023 Admitting Diagnosis Syncope/T2 burst fracture/dehydration DS: Discharge Diagnosis Discharge Diagnosis (1) Syncope: Qualifiers: Syncope type: unspecified Qualified Code(s): R55 - Syncope and collapse Code(s): R55 - Syncope and collapse Status: Acute (2) Laceration of scalp: Qualifiers: Encounter type: initial encounter Qualified Code(s): S01.01XA - Laceration without foreign body of scalp, initial encounter Code(s): S01.01XA - Laceration without foreign body of scalp, initial encounter Status: Acute (3) Burst fracture of thoracic vertebra: Qualifiers: Encounter type: initial encounter Fracture type: closed Qualified Code(s): S22.001A - Stable burst fracture of unspecified thoracic vertebra, initial encounter for closed fracture Code(s): S22.001A - Stable burst fracture of unspecified thoracic vertebra, initial encounter for closed fracture Status: Acute (4) UTI (urinary tract infection): Qualifiers: Hematuria presence: without hematuria Urinary tract infection type: site unspecified Qualified Code(s): N39.0 - Urinary tract infection, site not specified Code(s): N39.0 - Urinary tract infection, site not specified Status: Acute (5) Thyroid nodule: Code(s): E04.1 - Nontoxic single thyroid nodule Status: Acute (6) Anemia: Qualifiers: Anemia type: unspecified type Qualified Code(s): D64.9 - Anemia, unspecified Code(s): D64.9 - Anemia, unspecified Status: Acute (7) Psychiatric illness: Code(s): F99 - Mental disorder, not otherwise specified Status: Acute (8) Asthma: Code(s): J45.909 - Unspecified asthma, uncomplicated Status: Acute (9) Malnutrition: Code(s): E46 - Unspecified protein-calorie malnutrition Status: Acute Plan Syncope/Fall Hypotensive POA secondary to dehydration Respond to IV fluids Orthostatic negative DDIMER elevated 7.41 CTA negative for PE/BLE dopplers negative PT/OT COVID/Influenza/RSV negtaive positive for marijuana Positive hCG repeating today follow-up negative T10 acute Burst fracture Neurology spoken to in ED TLSO brace/follow-up 2 weeks TLSO ordered PT/OT Pain control UTI Leukocytes + Rocephin IV pending cultures Anemia chronic Hgb stable continue to monitor Transfuse PRBC if Hgb <7.0 Thyroid nodule TSH WNL will need ultrasound for further evaluation multiple stable nodules Annual follow-up US recommended Schizophrenia Resume home medication Lives at [facility] Stable Moderate malnutrition due to poor caloric and protein intake Consult re recording mixer protein shake with each meal HX aspiration MBS pending for evaluation is currently on a puree diet Code status: Full code per patient DVT prophylaxis: Lovenox Stress ulcer prophylaxis: Protonix 40 daily PT/OT notes: PT/OT pending with TLSO brace Disposition: Discharged to [facility] DS: Summary Hospital Course Reason for hospitalization: Syncope/T2 burst fracture/dehydration Hospital Course: Admission: Patient is a 63-year-old female who presented to the emergency department from [facility] after complaints of syncopal episode. Patient is a poor historian and unable to provide history most information is from the medical chart. Patient states she did not remember passing out just that she was standing in the kitchen and fell over hitting her head. Patient at time of assessment denied any chest pain, shortness a breath, nausea, vomiting, dizziness, blurred vision fever or chills. Did report some back pain. Patient did hit her head with laceration that was repaired in the emergency department. Patient does have a past medical history of schizophrenia, anxiety, asthma, depression, GERD, HL
[2023-09-12 15:04] VITALS: BP 149/87; PULSE 74; RESP 20; TEMP 36.9; O2SAT 97
== END 2023-09-12 19:10 ==
LOC: ANHED 09-11 01:51 → ANH2MED 09-11 05:13
PROVIDERS: Admitting Provider Internal Medicine; Emergency Provider Student in an Organized Health Care Education/Training Program; PCP Emergency Medicine; Visit Provider Nurse Practitioner Family
DX: S01.01XA Laceration without foreign body of scalp, initial encounter (principal); S22.001A Stable burst fracture of unspecified thoracic vertebra, initial encounter for closed fracture; N39.0 Urinary tract infection, site not specified; R55 Syncope and collapse; E86.0 Dehydration; I95.9 Hypotension, unspecified; D64.9 Anemia, unspecified; W18.39XA Other fall on same level, initial encounter; M79.605 Pain in left leg; M79.604 Pain in right leg; E46 Unspecified protein-calorie malnutrition; Z68.1 Body mass index [BMI] 19.9 or less, adult; E78.5 Hyperlipidemia, unspecified; Z20.822 Contact with and (suspected) exposure to COVID-19; E04.1 Nontoxic single thyroid nodule; J45.909 Unspecified asthma, uncomplicated; K21.9 Gastro-esophageal reflux disease without esophagitis; F20.9 Schizophrenia, unspecified; F41.9 Anxiety disorder, unspecified; F32.A Depression, unspecified; F17.210 Nicotine dependence, cigarettes, uncomplicated; F12.90 Cannabis use, unspecified, uncomplicated; Z79.51 Long term (current) use of inhaled steroids; Z79.899 Other long term (current) drug therapy; Z23 Encounter for immunization
CPT/HCPCS: 12001; 36415; 70450; 71045; 71275; 72125; 72128; 72131; 74177; 76536; 80053; 80307; 81001; 82550; 83605; 83690; 83735; 84443; 84484; 84702; 84703; 85025; 85027; 85380; 85610; 85730; 86850; 86900; 86901; 87086; 87637; 90471; 90715; 92611; 93005; 93970; 94640; 96361; 96365; 97161; 97166; 97530; 97535; 99285; A9270; G0378; G0379; J0696; J1650; J7030; Q9967

== ENCOUNTER 2023-10-20 14:28 | Emergency (ER) | payer OTHER, SELFPAY ==
[2023-10-20] VITALS (17 sets, daily range): BP systolic 157–193; BP diastolic 89–121; PULSE 100–116; RESP 15–20; TEMP 36.4–36.5; O2SAT 94–98
--- NOTE | ~2023-10-20 | XR_ITS ---
EXAMINATION: XR mandible min 4V DATE: 10/20/2023 15:17 INDICATION: Jaw discomfort. TECHNIQUE: 7 views of the mandible were obtained. COMPARISON: Head CT 09/10/2023 FINDINGS: There is leftward deviation of the nasal septum. No fracture. The patient is edentulous. Th ere is moderate osteoarthritis of the temporomandibular joints. IMPRESSION: 1. Moderate osteoarthritis of the temporomandibular joints. Reviewed, dictated and finalized at location A.
--- NOTE | 2023-10-20 14:39 | ED.GENADULT ---
HPI - General Adult General Chief complaint: Unspecified <Gisell Gould PA-C - Last Filed: 10/22/23 09:38> Stated complaint: THROAT JAW LOCKED UP <Gisell Gould PA-C - Last Filed: 10/22/23 09:38> Time Seen by Provider: 10/20/23 14:39 <Gisell Gould PA-C - Last Filed: 10/22/23 09:38> Focused HPI: This is a 63-year-old female that presents to the emergency department for evaluation. Reports her jaw feels locked up. This is been ongoing over the last 30 minutes. Denies difficulty swallowing or trouble breathing. GENERAL: Well-appearing, well-nourished, and in no acute distress. HEAD: Normocephalic, atraumatic. ENT: No trismus. No swelling of the mouth or throat CHEST: Clear to auscultation. ?No respiratory distress. HEART: Regular rate and rhythm.? NEURO: ?Alert and oriented x3. Patient screened in triage and initial orders placed.? ?Additional care and disposition to be based upon?diagnostic testing and treatment. <Gisell Gould PA-C - Last Filed: 10/22/23 09:38> History of Present Illness HPI narrative: Agree the HPI. Patient reports that she feels very anxious and shaky. They would not give her her Ativan at the facility because she only is able to get it in the evenings. No chest pain chest pressure. No new provoking event. She has not started any new medications. <Gunnar Ybarra MD - Last Filed: 10/20/23 22:20> Related Data Home medications: Home Medications Medication Instructions Recorded Confirmed albuterol sulfate 90 mcg/actuation 2 puff inhalation TID PRN 07/26/21 09/11/23 aerosol inhaler shortness of breath or wheezing budesonide-formoterol HFA 160 2 puff inhalation Q12H 07/26/21 09/11/23 mcg-4.5 mcg/actuation aerosol inhaler (Symbicort) docusate sodium 100 mg capsule 100 mg PO BID 07/26/21 09/11/23 fluticasone propionate 50 1 spray intranasal BID 07/26/21 09/11/23 mcg/actuation nasal spray,suspension (Allergy Relief (fluticasone)) loratadine 10 mg tablet 10 mg PO DAILY 07/26/21 09/11/23 multivitamin 1 tablet PO DAILY 07/26/21 09/11/23 prazosin 1 mg capsule 1 mg PO HS 07/26/21 09/11/23 simvastatin 40 mg tablet 40 mg PO DAILY 07/26/21 09/11/23 trihexyphenidyl 2 mg tablet 2 mg PO QHS 07/26/21 09/11/23 calcium carbonate 600 mg-vitamin 2 tablet PO DAILY 08/23/23 09/11/23 D3 10 mcg (400 unit) tablet (Calcium with Vitamin D) citalopram 10 mg tablet 20 mg PO DAILY 08/23/23 09/11/23 famotidine 20 mg tablet (Pepcid) 20 mg PO DAILY 08/23/23 09/11/23 fluticasone 113 mcg-salmeterol 14 1 inh inhalation BID 08/23/23 09/11/23 mcg/actuation 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[employer]) lorazepam 0.5 mg tablet 0.5 mg PO HS 08/23/23 09/11/23 melatonin 10 mg tablet 10 mg PO HS PRN Insomnia 08/23/23 09/11/23 meloxicam 15 mg tablet 15 mg PO DAILY 08/23/23 09/11/23 paliperidone palm (6 month) 1,560 1,560 mg IM [id number] 08/23/23 09/11/23 mg/5 mL intramuscular syringe ([facility]) trazodone 100 mg tablet 200 mg PO HS PRN Insomnia 08/23/23 09/11/23 valbenazine 80 mg capsule 80 mg PO HS 08/23/23 09/11/23 (Ingrezza) <Gisell Gould PA-C - Last Filed: 10/22/23 09:38> Allergies/adverse reactions: Allergies Allergy/AdvReac Type Severity Reaction Status Date / Time diazepam Allergy Unknown Throat Verified 10/20/23 14:40 Swelling imipramine Allergy Unknown Seizure Verified 10/20/23 14:40 risperidone Allergy Unknown Throat Verified 10/20/23 14:40 Swelling WOOL AdvReac Unknown Other Uncoded 10/20/23 14:40 <Gisell Gould PA-C - Last Filed: 10/22/23 09:38> Review of Systems Constitutional: Constitutional: Reports no additional constitutional complaints <Gunnar Ybarra MD - Last Filed: 10/20/23 22:20> Cardiovascular: Cardiovascular: Reports no additional cardiovascular complaints <Gunnar Ybarra MD - Last Filed: 10/20/23 22:20> Respiratory: Respiratory: Reports no additional respiratory complaints <Gunnar Castillo
[2023-10-20 21:13] LABS: Basophils Absolute Auto 0.1 K/mm3 (0.0-0.1); Basophils Percent Auto 0.5 % (0.2-1.2); Eosinophils Percent Auto 0.2 % (0-4.4); Hematocrit 38.7 % (37.0-47.0); Immature Granulocyte Absolute 0.04 K/mm3 (0.00-0.031); Immature Granulocyte Percent A 0.3 % (0-0.5); Lymphocytes Absolute Auto 1.69 K/mm3 (0.9-3.2); Mean Corpuscular HGB Conc 33.6 g/dl (32-36); Mean Corpuscular Hemoglobin 33.4 pg (26-34); Mean Corpuscular Volume 99.5 fl (80-100); Mean Platelet Volume 9.1 fl (7.4-10.4); Monocytes Absolute Auto 1.1 K/mm3 (0.1-0.6); Monocytes Percent Auto 8.1 % (2.6-8.5); Neutrophils Absolute Auto 10.1 K/mm3 (1.3-6.7); Neutrophils Percent Auto 77.9 % (45.5-73.1); Platelet Count Result 288 k/mm3 (150-375); Red Blood Count 3.89 M/mm3 (4.2-5.4)
[2023-10-20 21:27] LABS: Alanine Aminotransferase 24 U/L (6-35); Albumin Level 4.4 g/dL (3.5-5.1); Alkaline Phosphatase 90 U/L (38-126); Anion Gap 9 mmol/L (4-12); Aspartate Amino Transferase 26 U/L (14-36); Bilirubin,Total 0.4 mg/dL (0.2-1.3); Blood Urea Nitrogen 14 mg/dL (7-17); Calcium 10.6 mg/dL (8.4-10.2); Carbon Dioxide 26 mmol/L (22-30); Chloride 99 mmol/L (98-107); Estimated CRCL calculation 78 ml/min; Estimated Glomerular Filt Rate > 60; Glucose 123 mg/dL (65-110); Potassium 4.3 mmol/L (3.4-5.0); Sodium 134 mmol/L (137-145)
[2023-10-20] MEDS: LORazepam INJ (*CRX) 2 MG/ML VIAL 0.5 MG IV PUSH (22:10)
[2023-10-21] MEDS: LORazepam (*CRX) 1 MG TABLET PO (00:54)
[2023-10-21 01:20] VITALS: BP 177/84; PULSE 99; RESP 15; O2SAT 98
== END 2023-10-21 01:25 | disposition home or self-care (01) ==
PROVIDERS: Emergency Provider Emergency Medicine; PCP Emergency Medicine
DX: F41.9 Anxiety disorder, unspecified (principal); F17.210 Nicotine dependence, cigarettes, uncomplicated; J45.909 Unspecified asthma, uncomplicated; F32.A Depression, unspecified; K21.9 Gastro-esophageal reflux disease without esophagitis; E78.5 Hyperlipidemia, unspecified; M19.90 Unspecified osteoarthritis, unspecified site
CPT/HCPCS: 36415; 70110; 80053; 85025; 96374; 99284; A9270; J2060

== ENCOUNTER 2023-11-17 15:17 | Outpatient (CLI) | payer OTHER, SELFPAY ==
--- NOTE | ~2023-11-17 | XR_ITS ---
3 VIEWS THORACIC SPINE Ordering provider: Acacia Jain MD History: . S22.001A - Stable burst fracture of unspecified thoracic ... . Comparison: None. FINDINGS: VERTEBRAL BODIES: Severe kyphosis. S-shaped scoliosis. Loss of volume of T10 suggestive of compressio n fracture of indeterminate age. Osteopenia of the bones. Otherwise, Normal height and alignment. No visible subluxation. DISK SPACES:: Narrowing at multiple levels. SOFT TISSUES: Atherosclerotic changes of the aorta. IMPRESSION: Indeterminate age Compression fracture of T10. Clinical correlation advised.. Reviewed, dictated and finalized at location A.
== END 2023-11-17 15:18 | disposition home or self-care (01) ==
LOC: ANHIMG 15:18
PROVIDERS: PCP Emergency Medicine; Visit Provider Neurological Surgery
DX: S22.070A Wedge compression fracture of T9-T10 vertebra, initial encounter for closed fracture (principal); X58.XXXA Exposure to other specified factors, initial encounter
CPT/HCPCS: 72070